=== PATIENT | female | born 1945 | race Caucasian/White ===

== ENCOUNTER 2019-01-10 08:18 | Inpatient (IN) ==
[2019-01-10] MEDS ORDERED: SOLU-MEDROL IV ONE (08:42)
[2019-01-10] MEDS ORDERED: ROCEPHIN 1 GM in NS 50 ML IV ONE (08:42)
--- NOTE | 2019-01-10 09:05 | Diag Imaging Result Doc PS360 ---
EXAM: CHEST-PORTABLE HISTORY: shortness of breath TECHNIQUE: Chest single view COMPARISON: None. FINDINGS: The lungs are hyperexpanded. The pulmonary vessels are small. No cardiomegaly. No consolidation. No pleural effusions identified. There has been surgery to the lower neck. IMPRESSION: Severe emphysema Electronically signed by Chris Mello 01/10/2019 9:02 AM
[2019-01-10 09:11] LABS: ALLEN TEST YES; BE 2.8 mmoll (-3.0-3.0); BLOOD TYPE ARTERIAL; METHB 0.9 % (0.0-1.5); O2(CT) 15.1 mL/dL (15.0-23.0); O2HB 92.4 % (95.0-99.0); PCO2(98.6) 34 mmHg (35-45); PO2(98.6) 65 mmHg (60-100); SAMPLE BLOOD; SAO2 95.3 % (95.0-100.0); THB 11.6 g/dL (11.5-17.4); pH(98.6) 7.49 (7.35-7.45)
[2019-01-10 09:12] LABS: MODALITY CANNULA
[2019-01-10] MEDS ORDERED: DUONEB (A & A) INH ONE (09:22)
[2019-01-10 09:35] LABS: BASO# 0.02 X1000 (0.0-0.2); BASO% 0.1 % (0.0-0.8); EOS# 0.01 X1000 (0.0-0.7); EOS% 0.1 % (0.0-10.0); HEMATOCRIT 35.1 % (37.0-47.0); HEMOGLOBIN 11.7 g/dL (12.0-16.0); IMM GRAN# 0.04 X1000 (0.0-0.04); IMM GRAN% 0.3 % (0.0-0.5); LYMPH# 1.19 X1000 (1.2-3.4); LYMPH% 7.9 % (20.5-51.1); MCH 31.4 PG (27-31); MCHC 33.3 g/dL (33-37); MCV 94.1 FL (81-99); MPV 9.6 FL (7.4-10.4); NEUT# 12.51 X1000 (1.4-6.5); NEUT% 83.6 % (42.2-75.2); PLT 396 X1000 (130-400); RBC 3.73 XMIL (4.2-5.4); RDW 13.3 % (11.5-14.5); WBC 14.97 X1000 (4.8-10.8)
--- NOTE | 2019-01-10 10:05 | EKG Report ---
Test Performed on : 01/10/2019 08:27:11 AM Test Reason : SOB Blood Pressure : / mmHG Vent. Rate : 081 BPM Atrial Rate : 081 BPM P-R Int : 144 ms QRS Dur : 158 ms QT Int : 408 ms P-R-T Axes : 087 081 088 degrees QTc Int : 473 ms Normal sinus rhythm. Nonspecific intraventricular block Abnormal ECG No previous ECGs available Unconfirmed Result
[2019-01-10 10:16] LABS: AGAP 17; ALB/GLOB RATIO 1.6; ALBUMIN 3.6 g/dL (3.5-5.0); ALKALINE PHOSPHATASE 114 U/L (32-104); BUN 11 mg/dL (8-22); CALCIUM 8.4 mg/dL (8.8-10.2); CHLORIDE 98 mmol/L (98-107); COSMO 275; CREATININE 0.4 mg/dL (0.5-0.9); ESTIMATED GFR > 60; GLUCOSE 131 mg/dL (70-104); GOT 26 U/L (10-30); GPT 26 U/L (10-36); POTASSIUM 3.9 mmol/L (3.5-5.1); SODIUM 137 mmol/L (136-145); TCO2 22 mmol/L (25-35); TOTAL BILIRUBIN 0.37 mg/dL (0.20-1.00); TOTAL PROTEIN 5.9 g/dL (6.3-8.3)
[2019-01-10] MEDS ORDERED: NS 1,000 ML IV ONE (10:28)
[2019-01-10] MEDS ORDERED: NS 1,000 ML ONE (10:32)
--- NOTE | 2019-01-10 10:39 | PROVIDER DOCUMENTATION ---
HPI-Respiratory General - General Chief Complaint: Shortness of Breath Stated Complaint: SOB Time Seen by Provider: 01/10/19 08:32 Allergies/Adverse Reactions: Patient Allergies Allergy/AdvReac Type Severity Reaction Status Date / Time Penicillins Allergy NAUSEA/VOMI Verified 01/04/19 18:06 TING Home Medications: Home Medication List Medication Instructions Recorded Confirmed Last Taken Type Levothyroxine [Synthroid] 75 microgm PO DAILY 01/04/19 01/04/19 Unknown History Oxycodone E.r. [Oxycontin] 10 mg PO Q12HR 01/04/19 01/04/19 Unknown History Oxycodone HCl/Acetaminophen 1 ea PO Q6H 01/04/19 01/04/19 Unknown History [Percocet 10-325 mg Tablet] Rivaroxaban [Xarelto] 25 mg PO DAILY 01/04/19 01/04/19 Unknown History - History of Present Illness-Resp Nature of Presenting Problem: patient was smoker with history of copd complained of worsening shortness of breath, cough without fever, patient denied using oxygen at home, patient has just recently moved to the area Quality of Pain: reports: tightness Severity in ED: reports: moderate Onset/Duration: reports: gradual Timing: reports: still present Exposure: reports: smoke exposure Cough Quality/Degree: reports: productive cough Episode Frequency: chronic episodes Current Respiratory Medication Therapy: Initiated albuterol/atrovent inhale Modifying Factors: improves with: exertion, coughing, oxygen Associated Symptoms: reports: chest pain/soreness, cough Similar Symptoms Previously?: Yes Recently seen or treated by another doctor?: No Past History - Adult - PAST MEDICAL HISTORY-ADULT Review of Records: reports: Nursing Assessment Review Physical Exam-General - PHYSICAL EXAM-ADULT Initial Vital Signs Reviewed: Yes - CONSTITUTIONAL General Appearance: alert, mild distress - EYES Eyes: PERRL/EOMI, pink conjunctivae - HEAD, EARS, NOSE, MOUTH & THROAT HENMT: normocephalic/atraumatic, moist mucous membranes - NECK Neck: non-tender, full range of motion, supple - RESPIRATORY Respiratory: chest non-tender, respiratory distress, other (distant breath sounds, not good air movement) - CARDIOVASCULAR Cardiovascular: normal peripheral pulses, regular rate, rhythm, no edema - GASTROINTESTINAL (ABDOMEN) Abdominal Exam: normal bowel sounds, non tender, soft - MUSCULOSKELETAL Back Exam: normal inspection, no CVA tenderness, no vertebral tenderness Extremity: normal range of motion, non-tender - SKIN Integumentary: normal color, normal turgor - NEUROLOGIC 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, grossly normal, no motor/sensory deficits - PSYCHIATRIC Psych/Mental Status: normal mood/affect Progress - PLAN OF CARE/RESULTS Progress/Plan/Lab Results: Vital Signs - 8 hr 01/10/19 08:22 01/10/19 09:52 Temperature 98.0 F Pulse Rate 86 66 Respiratory Rate 22 16 Blood Pressure 107/68 O2 Sat by Pulse Oximetry 84 L 92 L Laboratory Results - last 24 hr 01/10/19 01/10/19 01/10/19 09:00 09:00 09:00 WBC RBC Hgb Hct MCV MCH MCHC RDW Std Deviation Plt Count MPV Immature Gran % (Auto) Neut % (Auto) Lymph % (Auto) [place] % (Auto) Eos % (Auto) Baso % (Auto) Immature Gran # (Auto) Neut # (Auto) Lymph # (Auto) [place] # (Auto) Eos # (Auto) Baso # (Auto) Specimen Type Sample Site pH pCO2 pO2 HCO3 Base Excess Oxyhemoglobin ABG O2 Sat (Calculated) ABG O2 Saturation ABG Carboxyhemoglobin ABG Methemoglobin Terrell Test A-a O2 Difference Total Hemoglobin Lactate Liter Flow Blood Gas Modality FiO2 % Sodium 137 Potassium 3.9 Chloride 98 Carbon Dioxide 22 L Anion Gap 17 BUN 11 Creatinine 0.4 L Estimated GFR/1.73 m2 > 60 BUN/Creatinine Ratio 28 Glucose 131 H Calculated Osmolality 275 Calcium 8.4 L Total Bilirubin 0.37 AST 26 ALT 26 Alkaline Phosphatase 114 H Fwv-Z-Ktatktsnwlv Pept 3879 H Total Protein 5.9 L Albumin 3.6 Globulin 2.3 Albumin/Globulin Ratio 1.6 Plasma Lactate 1.3 01/10/19 01/10/19 01/10/19 09:00 09:02 10:35 WBC 14.97 H RBC 3.73 L Hgb 11.7 L Hct 35.1 L MCV 94.1 MCH 31.4 H MCHC 33.3 RDW Std Deviation 13.3 Plt Count 396 MPV 9.6 Immature Gran % (Auto) 0.3 Neut % (Auto) 83.6 H Lymph % (Auto) 7.9 L [place] % (Auto) 8.0 Eos % (Auto) 0.1 Baso % (Auto) 0.1 Immature Gran # (Auto) 0.04 Neut # (Auto) 12.51 H Lymph # (Auto) 1.19 L [place] # (Auto) 1.20 H Eos # (Auto) 0.01 Baso # (Auto) 0.02 Specimen Type ARTERIAL Sample Site R RADIAL pH 7.49 H pCO2 34 L pO2 65 HCO3 27.0 H Base Excess 2.8 Oxyhemoglobin 92.4 L ABG O2 Sat (Calculated) 15.1 ABG O2 Saturation 95.3 ABG Carboxyhemoglobin 2.00 ABG Methemoglobin 0.9 Terrell Test YES A-a O2 Difference 121.0 Total Hemoglobin 11.6 Lactate 0.80 Liter Flow 3.0 Blood Gas Modality CANNULA FiO2 % 32.0 Sodium Potassium Chloride Carbon Dioxide Anion Gap BUN Creatinine Estimated GFR/1.73 m2 BUN/Creatinine Ratio Glucose Calculated Osmolality Calcium Total Bilirubin AST ALT Alkaline Phosphatase Kmb-C-Hvdnafkifjj Pept Total Protein Albumin Globulin Albumin/Globulin Ratio Plasma Lactate 0.9 Orders Category Date Time Status Saline Loc NOW Care 01/10/19 08:42 Active CHEST-PORTABLE [RAD] Stat Exams 01/10/19 08:43 Completed ABG [RESP] Routine Lab 01/10/19 09:02 Completed BLOOD CULTURE [BLDCUL] Stat Lab 01/10/19 09:00 Results CBC WITH DIFF [HEME] Stat Lab 01/10/19 09:00 Completed COMPREHENSIVE METABOLIC PANEL [CHEM] Stat Lab 01/10/19 09:00 Completed LACTATE, PLASMA [CHEM] Stat Lab 01/10/19 09:00 Completed LACTATE, PLASMA [CHEM] Stat Lab 01/10/19 10:35 Completed PRO B-NATRIURETIC PEPTIDE Stat Lab 01/10/19 09:00 Completed 0.9% Sodium Chloride Inj [Ns] 1,000 ml Med 01/10/19 10:32 Discontinued .ROUTE As directed 0.9% Sodium Chloride Inj [Ns] 1,000 ml Med 01/10/19 10:28 Discontinued IV 999 mls/hr Albuterol 2.5MG/Ipratrop 0.5MG [Duoneb (A & A)] Med 01/10/19 09:22 Discontinued 3 ml INH NOW ONE CefTRIAXONE [Rocephin] 1 gm Med 01/10/19 08:42 Discontinued 0.9% Sodium Chloride Inj [Ns] 50 ml IV NOW Methylprednisolone Sod Succ [Solu-Medrol] Med 01/10/19 08:42 Discontinued 125 mg IV NOW ONE Aerosol Treatments Routine Oth 01/10/19 09:22 Completed Aerosol Treatments Stat Oth 01/10/19 09:22 Completed Pulse Oximetry Stat Oth 01/10/19 08:42 Completed EKG [EKG] Stat Ther 01/10/19 10:00 Draft Result Diagrams: 01/10/19 09:00 01/10/19 09:00 - EKG 1 Time of EKG reading by physician:: 08:27 EKG Read and Signed by:: Alma Kimbrough EKG Interpretation (*Must complete 3 of following elements*): Abnormal Rate: 81 Rhythm: normal sinus rhythm [place]: normal [place] Interval: normal Comments: nonspecific intraventricular block Departure - Departure Referrals and Follow-Ups: None,PCP [Primary Care Provider] -
[2019-01-10] MEDS ORDERED: DUONEB (A & A) INH PRN (11:41)
[2019-01-10] MEDS ORDERED: ROCEPHIN 1 GM in NS 50 ML IV SCH (11:45)
[2019-01-10] MEDS: SOLU-MEDROL IV SCH (11:45)
[2019-01-10] MEDS ORDERED: NICODERM PATCH TD ONE (11:47)
--- NOTE | 2019-01-10 12:16 | Diag Imaging Result Doc PS360 ---
ABDOMEN FLAT/UPRIGHT - 01/10/2019 INDICATION: constipation COMPARISON: None FINDINGS: There is severe diffuse constipation with mild rectal stool impaction. No small bowel obstruction or free air. No abnormal calcifications. IMPRESSION: Severe constipation with rectal stool impaction. Electronically signed by Fadi Linda 01/10/2019 12:14 PM
[2019-01-10] MEDS ORDERED: FLEET MINERAL OIL ENEMA PR ONE (12:18)
[2019-01-10] MEDS ORDERED: ROBITUSSIN-AC PO PRN (13:27)
--- NOTE | 2019-01-10 13:30 | Diag Imaging Result Doc PS360 ---
MRI LUMBAR SPINE W/O CONTRAST - 01/10/2019 INDICATION: Lumbar fx, urinary incontinence, neuro deficits COMPARISON: CT from 01/04/2019 FINDINGS: Alignment is anatomic. There is bone marrow edema at the compression fracture with superior endplate fracture at L2. There is about 30% loss of height. No bony retropulsion. The gallbladder is severely dilated. There is also severe dilation of the common bile duct. The common bile duct measures up to 12.2 mm. No obvious stone or mass here. There our moderate disc bulges at L2-3 and L3-L4. There is severe disc narrowing at L5-S1 with degeneration. No significant central canal stenosis. No neural foraminal stenosis. IMPRESSION: 1. Recent compression fracture of L2 with bone marrow edema. No complication. 2. Severely distended gallbladder and extrahepatic biliary system. Concerning for distal common bile duct obstruction. The reason is unclear. Recommend a right upper quadrant ultrasound for further evaluation. Electronically signed by Fadi Linda 01/10/2019 1:28 PM
--- NOTE | 2019-01-10 14:28 | ECHO REPORT ---
ORDER DATE: 01/10/2019 INTERPRETING PHYSICIAN: Dr. Levon Dumas ECHOCARDIOGRAPHIC MEASUREMENTS: 1. Interventricular septum 1.2. 2. Left ventricular posterior wall 1.1. 3. Diastolic diameter 4.4. 4. Left atrium 4.1. 5. Aorta 3.3. SUMMARY OF THE 2-DIMENSIONAL IMAGIN. Technically suboptimal study. 2. Poor acoustic window. 3. Aortic valve leaflets are trileaflet. 4. Pulmonic valve not well visualized. 5. Mitral valve was normal. 6. Tricuspid valve was normal. 7. Normal left ventricular cavity size. Estimated ejection fraction of 55%. 8. Endocardium not well visualized in all views. 9. There is mitral annular calcification. 10. There is mild mitral regurgitation. 11. Peak velocity across the aortic valve less than 2 m/sec. 12. By Doppler studies, there is no aortic stenosis or regurgitation. 13. Mild tricuspid regurgitation. 14. Peak velocity across the tricuspid valve was less than 2.5 m/sec. 15. There is no pericardial effusion. cc: MD Jelly Novak MD
[2019-01-10] MEDS: HEPARIN SUBQ SCH ×2 (14:55→20:53)
[2019-01-10] MEDS: ZITHROMAX PO SCH (14:55)
[2019-01-10] MEDS: TESSALON PO SCH ×2 (14:55→20:53)
[2019-01-10] MEDS: NS 1,000 ML IV SCH (14:55)
[2019-01-10] MEDS: NICODERM PATCH TD SCH (14:55)
[2019-01-10] MEDS: PERCOCET-5 PO PRN ×2 (15:07→21:30)
[2019-01-10] MEDS: DUONEB (A & A) INH SCH ×2 (15:39→19:48)
--- NOTE | 2019-01-10 16:09 | HISTORY AND PHYSICAL ---
CHIEF COMPLAINT: Shortness of breath, cough with thoracic back pain. HISTORY OF PRESENT ILLNESS: This is a 73-year-old female with a history of COPD, chronic tobacco use, hypertension, hypothyroid, atrial fibrillation, who fell on January 04 and was found to have a compression fracture at the upper endplate of L2 with a less than 2 mm retropulsion in the upper endplate fragment with no subluxation. She was evaluated in the emergency room on January 06 after this fall, discharged home to follow up with the [facility]. She was actually evaluated earlier in the week, given a TLSO brace and has an MRI scheduled for in the morning due to urinary incontinence. She presents today complaining of thoracic pain that wraps around to both mid axillary areas, shortness of breath with a productive cough. She presented with a room air saturation of 84%. Sats increased to 92 to 94 percent on 2 L nasal cannula. In talking with the patient and her daughter, since the fall the patient has had some urinary incontinence. She states she does not feel the urge to void. She does knows that she goes after she finds her clothes wet. She has also states that she has had some decreased sensation in the form of tingling to her bilateral lower extremities. The daughter states that the patient is not lifting her legs as high as normal and she is tripping and a few times it seemed that she could not control which way her feet were pointing. PAST MEDICAL HISTORY: 1. Chronic obstructive pulmonary disease. 2. Atrial fibrillation on chronic anticoagulation. 3. Congestive heart failure. 4. Hypertension. 5. Hypothyroidism. 6. Fibromyalgia. 7. Chronic back pain on chronic opiates. 8. Chronic constipation 9. Recent lumbar compression fracture 10. Tobacco dependence PAST SURGICAL HISTORY: Hysterectomy and C4 replacement. SOCIAL HISTORY: She smokes about a half a pack to a pack a day. She denies alcohol or illicit drug use. She lives with her . They recently moved here from [place] to be closer to their children. REVIEW OF SYSTEMS: Discussed with the patient with pertinent positives stated in the HPI. She denied any syncope or dizziness, any chest pain or palpitations, any nausea, vomiting, diarrhea, any black or bloody vomitus or stools, any hematuria, dysuria, frequency, urgency. PHYSICAL EXAMINATION: GENERAL: This is a 73-year-old female who is lying on the stretcher in the emergency room in mild distress. VITAL SIGNS: Blood pressure is 105/50, with a heart rate of 64, respirations are 20 to 24, temperature is 98 degrees with O2 saturations 92 to 94 percent on 3 L nasal cannula. HEENT: Head is normocephalic, atraumatic. Mucous membranes are moist. NECK: Supple. Trachea midline. CARDIOVASCULAR: Regular rate and rhythm. S1 and S2 appreciated. EXTREMITIES: She has no lower extremity edema. Peripheral pulses are palpable x4 extremities. Calves are nontender bilateral. PULMONARY: Breath sounds are diminished throughout. She does have prolonged expiration. She does have rhonchi that do not completely clear to cough with a little expiratory wheezing on the right greater than left. Chest wall is nontender to palpation. GASTROINTESTINAL: Abdomen is soft, nontender, nondistended. Bowel sounds in all 4 quadrants. GENITOURINARY: She has no CVA or suprapubic tenderness. NEUROLOGIC: She is alert oriented x3. SKIN: Warm and dry. LABS: WBC is 14.9 with hemoglobin 11.7, hematocrit 35.1, and platelets of 396,000. Sodium 137, potassium 3.9, BUN 11, creatinine 0.4 with a glucose of 131. Her EKG reveals sinus rhythm at a rate of 81. Abdominal x-ray revealed severe constipation with rectal stool impaction. ASSESSMENT AND PLAN: 1. Chronic obstructive pulmonary disease with acute exacerbation. DuoNebs q.4 hours with q.2 hours p.r.n. steroids to taper. 2. Acute hypoxic respiratory failure. continue with supplemental oxygen. 3. Productive cough. Incentive spirometer every 4 hours per respiratory therapy. [place] Claros AC 10 mL q.4 hours p.r.n. cough. sputum specimen. 4. Hypertension identify her home medications and continue as appropriate. 5. History of atrial fibrillation on chronic anticoagulation. telemetry. hold Xarelto at present as we are obtaining an MRI due to neurologic deficits and anticoagulation will be decided upon once results are obtained. 6. Hypothyroidism. We will check a TSH and continue her home medications and dose appropriately. 7. Recent compression fracture to L2. Obtain MRI of the lumbar spine without contrast as the patient has had urinary incontinence as well as decreased sensation and tingling to bilateral lower extremities. 8. Chronic back pain with chronic opiate use. The patient is on oxycodone 10 mg chronically. We will verify her dosing, but as we are going to give Robitussin AC for her cough, we will decrease pain medications to Percocet 5 q.4 hours p.r.n. and this can be alternated with her cough syrup. The patient and daughter have been explained and they are aware and agreeable. 9. Chronic constipation. We obtained an abdominal x-ray which revealed severe constipation with rectal stool impaction. Give oral enema followed by Fleets and monitor. We will start a bowel regimen of MiraLAX b.i.d. starting tonight. 10. History of congestive heart failure. obtain an echocardiogram. 11. Tobacco use and abuse. I did discuss with the patient regarding smoking cessation discussing ways to stop. She will be given written materials. We will start a nicotine patch daily. Further treatments pending hospital course. Plan was discussed with Dr. Sawyer. Dictated by SUMANTH Sanabria for Jelly Sawyer MD cc: SUMANTH Sanabria MD I performed a face to face encounter on the patient. I reviewed all labs and imaging on the patient. I agree with the H&P as dictated. is a 73 year old female with a history of COPD, chronic constipation, tobacco abuse and a recent lumbar compression fracture who presented to the ER with a chief complaint of shortness of breath and abdominal pain. The patient was noted to be in a COPD exacerbation with severe constipation. On exam, the patient is dyspneic. She is alert and oriented x 4. Her breath sounds are diminished bilaterally. She has hypoactive bowel sounds. No peripheral edema was noted. The patient will be admitted and started on antibiotics, bronchodilator therapy, IV steroids and supplemental oxygen. Will start the patient on a bowel regimen and ask the nursing staff to disimpact the patient. CLAUDETTED
--- NOTE | 2019-01-10 16:45 | Diag Imaging Result Doc PS360 ---
US ABDOMEN-COMPLETE - 01/10/2019 INDICATION: cholelithiasis COMPARISON: MRI from earlier today FINDINGS: The gallbladder is severely distended. This measures about 12 x 4.6 cm. There our numerous small granular shadowing stones in the gallbladder. Common bile duct measures about 7.6 mm. There are probably some small stones in the right kidney measuring up to 4.5 mm. No hydronephrosis. The left kidney is normal. The liver, pancreas, and spleen are normal. Spleen size is 7.5 cm. Aorta, IVC, and main portal vein are patent. IMPRESSION: 1. Severely distended gallbladder. Several small stones in the gallbladder. Concerning for cholecystitis. 2. Small nonobstructing right renal stones. Electronically signed by Fadi Linda 01/10/2019 4:43 PM
[2019-01-10] MEDS: MIRALAX PO SCH (20:53)
[2019-01-10] MEDS: SENOKOT PO SCH (20:53)
--- NOTE | 2019-01-10 22:35 | CONSULTATION ---
DATE OF CONSULTATION: 01/10/2019 REQUESTING PROVIDER: Dr. Jelly Sawyer. REASON FOR CONSULTATION: Acute hypoxemic respiratory failure, severe emphysema. HISTORY OF PRESENT ILLNESS: This is a 73-year-old female with a medical history of COPD, ongoing tobacco abuse, atrial fibrillation, congestive heart failure, hypertension, hypothyroidism, fibromyalgia, and chronic back pain. She presented to the ER early this morning with severe cough spell and worsening shortness of breath. Chest x-ray in the ER showed severe emphysema. Abdominal x-ray showed severe constipation with rectal stool impaction. Her initial oxygen saturation at room air was 84%. Lab work showed leukocytosis, mild anemia and elevated proBNP. The patient reported she just moved here from [place] on January 01 via driving an RV. She reports some bilateral lower extremity edema with the right side slightly worse after that long drive, and later her pedal edema resolved, but she developed some discomfort on her lower extremities. She had a recent fall on January 04 with a L2 compression fracture. She also developed some dry cough since last week, which is progressively worsening especially in last 3 days. She states the cough spell took her breath away this morning and later she developed some pain on the bilateral low back with coughing or deep breathing. She reports she gained some weight recently. She has some wheezing recently at nighttime after she gets up to the bathroom. She is on some maintenance inhaler and a rescue inhaler at home. She also lost her appetite in the last couple days due to sickness. She has no chest pain, palpitation, fever, nausea or vomiting, or urination discomfort. PAST MEDICAL HISTORY: 1. COPD. 2. Ongoing tobacco abuse. 3. Atrial fibrillation on chronic anticoagulation. 4. Congestive heart failure. 5. Hyperlipidemia. 6. Hypothyroidism. 7. Fibromyalgia. 8. Chronic back pain, on chronic opiates. PAST SURGICAL HISTORY: 1. Hysterectomy and C4 replacement. SOCIAL HISTORY: The patient just moved from [place] on 01/01/2019. She recently smoked about 5 cigarettes per day, but stopped 3 days ago. She used to smoke 1 pack per day since she was 22 years old. She has no alcohol or illicit drug use. She currently lives at home with her . FAMILY HISTORY: Unknown. ALLERGIES: Penicillins. REVIEW OF SYSTEMS: A 10-point review of systems was conducted and the pertinent is listed within the HPI, otherwise noncontributory. PHYSICAL EXAMINATION: Vital Signs: Temperature 98.0, blood pressure 105/50, pulse 64, respiratory rate 24, oxygen saturation 92% on nasal cannula at 3. General: Chronically ill- appearing, lying in bed with no acute distress noted. HEENT: Atraumatic, normocephalic. Trachea midline. Mucosa pink and dry. Respiratory: Even and unlabored. Symmetrical excursion. Mild tachypnea. Auscultation reveals diminished breathing sounds bilaterally with prolonged expiratory phase. Cardiovascular: Regular rate and rhythm. Gastrointestinal: Soft, nondistended. Bilateral lower quadrant tenderness. Normoactive bowel sounds in all 4 quadrants. Extremities: No pedal edema. No cyanosis. No clubbing. Dorsalis pedis 1+ bilaterally. Neurologic: Alert and oriented x3. Speech fluent. Follows commands. LABORATORY DATA: White blood cell 14.97, hemoglobin 11.7, hematocrit 35.1, platelets 396. Sodium 137, potassium 3.9, chloride 98, carbon dioxide 22, BUN 11, creatinine 0.4, glucose 131. ProBNP 3879. ABG: pH of 7.49, pCO2 of 34, PO2 of 65, HC03 of 27.0, base excess of 2.8, oxyhemoglobin of 92.4. IMAGING DATA: See above. ASSESSMENT: This is a 73-year-old female with a medical history of COPD, ongoing tobacco abuse, atrial fibrillation, congestive heart failure, hypertension, hypothyroidism, fibromyalgia, and chronic back pain. She has been admitted to the medical floor since this morning with acute hypoxic respiratory failure, chronic obstructive pulmonary disease exacerbation, recent fall with L2 compression fracture, and constipation. 1. Acute hypoxic respiratory failure. 2. Chronic obstructive pulmonary disease exacerbation. 3. Ongoing tobacco abuse. 4. Severe constipation with rectal stool impaction. PLAN: 1. Continue supplemental oxygen. 2. Continue antibiotics, steroid and bronchodilators. 3. Follow up with CBC, BMP, sputum culture, blood culture, and liver function panel. 4. Daily smoking cessation education. 5. Continue GI and DVT prophylaxis. 6. Further recommendations pending hospital course. Thank you for the courtesy of this consult. Dictated by SUMANTH Wilburn for Cuate Lombardi MD cc: SUMANTH Wilburn MD [facility]
--- NOTE | 2019-01-10 23:39 | GENERAL SURGERY CONSULTATION ---
DATE: 01/10/2019 REASON FOR CONSULTATION: Gallstones. CHIEF COMPLAINT: Shortness of breath. HISTORY OF PRESENT ILLNESS: This is a 73-year-old female, chronically ill with COPD, chronic tobacco use, atrial fibrillation on Eliquis, recent lumbar compression fracture related to a fall, hypertension, hypothyroidism. She presents with shortness of breath and some bilateral chest discomfort. She was admitted to the Hospitalist service and workup showed severe emphysematous changes to lungs, L2 compression fracture. Abdominal ultrasound showed dilated gallbladder with gallstones, common bile duct measured 7.6 mm, right ureteral stones. Echocardiogram showed ejection fraction of 55%. Prior to this, she was in her usual state of health. She does have chronic productive cough that has worsened of late. MEDICAL HISTORY: COPD, atrial fibrillation on Eliquis, congestive heart failure, hypertension, hypothyroidism, fibromyalgia, degenerative spine disease. SURGICAL HISTORY: She has had C4 replaced, hysterectomy. No other abdominal surgery. SOCIAL HISTORY: She smokes a half pack a day, but has smoked for a long period of time. No alcohol. She lives with her son and children, recently moved from [place]. REVIEW OF SYSTEMS: A 10-point review of systems is negative other than what is mentioned in HPI. FAMILY HISTORY: Reviewed and noncontributory. PHYSICAL EXAMINATION: She is afebrile, pulse 65, blood pressure 94/45, oxygen saturation 93%. She is on 4 L. General: She is chronically ill-appearing, but in no acute distress. HEENT: No scleral icterus. No cervical masses. Cardiovascular: Normal rate, regular rhythm. Pulmonary: She does have some increased work of breathing, prolonged expiratory phase. She is on nasal cannula. Abdomen: Soft, nontender, nondistended. Integument: Warm, dry. Psychiatric: Appropriate affect. Neurologic: No gross deficits. Lymphatic: No cervical, axillary, or inguinal adenopathy. LABORATORY: White count is 14, hematocrit is 35, platelets 396,000. ABG shows pH of 7.49, CO2 of 65. Creatinine 0.4. Bilirubin is normal. AST and ALT are normal. Alkaline phosphatase mildly elevated at 114. IMAGING: As noted in her HPI. ASSESSMENT AND PLAN: A 73-year-old female admitted with most likely chronic obstructive pulmonary disease exacerbation. She has multiple medical issues. She was found to have gallstones and a distended gallbladder. Her LFTs are normal with the exception of her alkaline phosphatase in the recent setting of a lumbar spine fracture. This is not completely unexpected. Her bile duct is normal caliber on ultrasound. Symptoms are possibly related to symptomatic cholelithiasis, although I do not have clinical suspicion for cholecystitis at this juncture based off her exam and her history. I will continue to follow along. She would be very high risk for perioperative complication given her chronic lung disease. I would recommend holding her oral anticoagulation while we observe her abdominal exam and treatment of her respiratory status. Continue low-fat, liquid diet in the meantime, and we will continue to follow along with you. cc: Chema Gan MD
[2019-01-11] MEDS: SOLU-MEDROL IV SCH ×6 (00:44→23:34)
[2019-01-11] MEDS: NS 1,000 ML IV SCH ×3 (00:45→14:44)
[2019-01-11] MEDS: DUONEB (A & A) INH SCH ×7 (02:03→23:37)
[2019-01-11] MEDS: HEPARIN SUBQ SCH ×3 (05:36→20:07)
[2019-01-11] MEDS: PERCOCET-5 PO PRN ×5 (05:37→23:34)
[2019-01-11] MEDS: PRILOSEC PO SCH ×2 (05:37→06:05)
[2019-01-11 08:02] LABS: HEMATOCRIT 31.8 % (37.0-47.0); HEMOGLOBIN 10.6 g/dL (12.0-16.0); MCH 31.5 PG (27-31); MCHC 33.3 g/dL (33-37); MCV 94.6 FL (81-99); MPV 9.3 FL (7.4-10.4); RBC 3.36 XMIL (4.2-5.4); RDW 13.2 % (11.5-14.5); WBC 10.9 X1000 (4.8-10.8)
[2019-01-11 08:28] LABS: AGAP 15; BUN 14 mg/dL (8-22); CALCIUM 8.5 mg/dL (8.8-10.2); CHLORIDE 106 mmol/L (98-107); COSMO 284; CREATININE 0.5 mg/dL (0.5-0.9); ESTIMATED GFR > 60; GLUCOSE 112 mg/dL (70-104); POTASSIUM 3.9 mmol/L (3.5-5.1); SODIUM 142 mmol/L (136-145); TCO2 21 mmol/L (25-35)
[2019-01-11 08:45] LABS: ALB/GLOB RATIO 1.3; ALBUMIN 3.1 g/dL (3.5-5.0); DIRECT BILIRUBIN 0.1 mg/dL (0.00-0.20); TOTAL BILIRUBIN 0.28 mg/dL (0.20-1.00); TOTAL PROTEIN 5.5 g/dL (6.3-8.3)
--- NOTE | 2019-01-11 09:44 | Diag Imaging Result Doc PS360 ---
ABDOMEN FLAT/UPRIGHT - 01/11/2019 INDICATION: constipation COMPARISON: 01/10/2019 FINDINGS: There has been some reduction in the constipation particularly at the descending colon. There is still significant remaining constipation throughout the colon. No small bowel obstruction or free air. IMPRESSION: Some improvement in the constipation. Electronically signed by Fadi Linda 01/11/2019 9:41 AM
--- NOTE | 2019-01-11 10:23 | PROVIDER PROGRESS NOTE ---
Progress Note Pulmonary additional note: If a surgical procedure is needed, we can clear with moderate pulmonary risk management perioperatively. If needed, I think the patient will likely do Ok with surgical procedure.
[2019-01-11] MEDS: MIRALAX PO SCH ×2 (10:30→20:07)
[2019-01-11] MEDS: ROCEPHIN 1 GM in NS 50 ML IV SCH (10:31)
[2019-01-11] MEDS: TESSALON PO SCH ×3 (10:31→18:29)
[2019-01-11] MEDS: ZITHROMAX PO SCH (10:31)
[2019-01-11] MEDS: NICODERM PATCH TD SCH (10:31)
--- NOTE | 2019-01-11 14:26 | GENERAL SURGERY PROGRESS NOTE ---
DATE: 01/11/2019 SUBJECTIVE: She denies any abdominal pain. No nausea, vomiting. She says she is breathing more comfortably. No fevers. No tachycardia. OBJECTIVE: Vital Signs: Blood pressure 125/53, oxygen saturation 96% on 2 L. General: She is alert. Less work of breathing noted this morning. Abdomen: Her abdomen is soft, nontender, nondistended. Integument: Warm and dry without jaundice. LABS: White count 10, down from 14, hematocrit 31m,, creatinine 0.5. Her LFTs remain normal, now with a normal alkaline phosphatase. ASSESSMENT AND PLAN: This is a 73-year-old female, who presented with apparent pneumonia versus chronic obstructive pulmonary disease exacerbation, found to have gallstones with a gallbladder distention. Liver function tests are normal. Her abdominal exam is benign. Given her comorbid conditions, cholecystectomy would be a very high risk. We will continue to monitor as I do not suspect that she has active symptoms associated with this. cc: Chema Gan MD
--- NOTE | 2019-01-11 16:02 | PROGRESS NOTE ---
DATE: 01/11/2019 SUBJECTIVE: The patient is resting comfortably in bed. She states that her back pain is a little bit better once she receives the pain medication. She reports that she had a bowel movement overnight and her stomach feels a little bit better. OBJECTIVE: Vital Signs: Temperature 98.5 degrees, blood pressure 125/53, heart rate 82, respirations 18, O2 saturation is 96% on 4 L nasal cannula. General: This is a chronically ill- appearing elderly female lying in bed, in no acute distress. Heart: S1, S2. Normal. Lungs: Diminished breath sounds bilaterally. No wheezing. No rales. Abdomen: Positive bowel sounds. Soft, nontender, nondistended. Extremities: No edema, no cyanosis. Neurologic: The patient is alert and oriented x4. LABS: White blood cell count 10, hemoglobin 10, hematocrit 31, platelets 402,000. Sodium 142, potassium 3.9, chloride 106, CO2 21, BUN 14, creatinine 0.5, glucose 112, calcium 8.5, AST 18, ALT 20, alkaline phosphatase 97, albumin 3.1. ASSESSMENT AND PLAN: 1. Acute chronic obstructive pulmonary disease exacerbation. Continue with IV steroids, bronchodilator therapy, antibiotics and supplemental oxygen. 2. L2 compression fracture. Continue with the TLSO brace. The patient will likely require rehab. The patient is followed [facility] [place]. 3. Distended gallbladder. Continue to monitor closely. General Surgery is following. 4. Constipation. Continue with scheduled laxative therapy. 5. Tobacco dependence. The patient has been counseled about smoking cessation. 6. Deep vein thrombosis prophylaxis. Continue on heparin. 7. We will consult Physical Therapy. cc: Jelly Sawyer MD
[2019-01-11] MEDS: SENOKOT PO SCH (20:08)
[2019-01-12] MEDS: DUONEB (A & A) INH SCH ×5 (03:15→19:54)
[2019-01-12] MEDS: NS 1,000 ML IV SCH (04:11)
[2019-01-12] MEDS: HEPARIN SUBQ SCH ×3 (04:12→20:31)
[2019-01-12] MEDS: PRILOSEC PO SCH (06:07)
[2019-01-12] MEDS: SOLU-MEDROL IV SCH ×3 (06:07→17:20)
[2019-01-12] MEDS: PERCOCET-5 PO PRN ×4 (07:18→20:30)
--- NOTE | 2019-01-12 07:28 | Diag Imaging Result Doc PS360 ---
CHEST-1 VIEW - 01/12/2019 INDICATION: pneumonia COMPARISON: 01/10/2019 FINDINGS: Stable COPD. There is new, significant interstitial pulmonary edema. Pulmonary vessels are distended. Heart size is normal. No pneumothorax or significant pleural effusion. IMPRESSION: Interstitial pulmonary edema. Advanced COPD. Electronically signed by Fadi Linda 01/12/2019 7:25 AM
[2019-01-12 08:00] LABS: BASO# 0.01 X1000 (0.0-0.2); BASO% 0.1 % (0.0-0.8); HEMATOCRIT 34.7 % (37.0-47.0); HEMOGLOBIN 11.5 g/dL (12.0-16.0); IMM GRAN# 0.04 X1000 (0.0-0.04); IMM GRAN% 0.4 % (0.0-0.5); LYMPH# 0.95 X1000 (1.2-3.4); LYMPH% 9.1 % (20.5-51.1); MCH 31.3 PG (27-31); MCHC 33.1 g/dL (33-37); MCV 94.6 FL (81-99); MONO# 0.33 X1000 (0.11-0.59); MONO% 3.1 % (1.7-9.3); MPV 9.5 FL (7.4-10.4); NEUT# 9.15 X1000 (1.4-6.5); NEUT% 87.3 % (42.2-75.2); PLT 477 X1000 (130-400); RBC 3.67 XMIL (4.2-5.4); RDW 13.7 % (11.5-14.5); WBC 10.48 X1000 (4.8-10.8)
[2019-01-12] MEDS ORDERED: LASIX IV ONE ×2 (08:17→09:35)
[2019-01-12 08:19] LABS: AGAP 11; BUN 15 mg/dL (8-22); CALCIUM 8.8 mg/dL (8.8-10.2); CHLORIDE 107 mmol/L (98-107); COSMO 285; CREATININE 0.4 mg/dL (0.5-0.9); ESTIMATED GFR > 60; GLUCOSE 142 mg/dL (70-104); POTASSIUM 3.8 mmol/L (3.5-5.1); SODIUM 141 mmol/L (136-145); TCO2 23 mmol/L (25-35)
[2019-01-12] MEDS: MIRALAX PO SCH ×2 (09:02→20:31)
[2019-01-12] MEDS: ZITHROMAX PO SCH (09:03)
[2019-01-12] MEDS: ROCEPHIN 1 GM in NS 50 ML IV SCH (09:03)
[2019-01-12] MEDS: NICODERM PATCH TD SCH (09:03)
[2019-01-12] MEDS: TESSALON PO SCH ×3 (09:03→16:27)
--- NOTE | 2019-01-12 10:57 | GENERAL SURGERY PROGRESS NOTE ---
DATE: 01/12/2019 SUBJECTIVE: This patient is doing well. No abdominal pain. She got very short of breath with moving to the bedside chair yesterday. OBJECTIVE: [*]blood pressure 133/66. Oxygen saturation is 94% on 4 L. General: She is alert. She does have some more increased work of breathing. She is on nasal cannula. Cardiovascular: Normal rate. Abdomen: Soft, nontender. Skin is warm and dry without jaundice. DIAGNOSTIC DATA: White count is 10, hematocrit is 34. No LFTs today, they were normal yesterday. ASSESSMENT AND PLAN: This is a 73-year-old female with chronic obstructive pulmonary disease exacerbation with apparent pulmonary edema as well, possible pneumonia. Gallbladder was distended with gallstones, but I do not suspect this is the source of her issues. We will continue to follow. Pulmonology is engaged. cc: Fela Camara MD
--- NOTE | 2019-01-12 18:09 | PROGRESS NOTE ---
DATE: 01/12/2019 SUBJECTIVE: The patient complains of coughing spells. OBJECTIVE: Vital Signs: Temperature 99 degrees, blood pressure 134/65, heart rate 75, respirations 20, O2 saturation 92% on 4 L nasal cannula. Intake 2.4 L. Output 1.4 L. General: This is a chronically ill-appearing elderly female lying in bed in no acute distress. Heart: S1, S2 normal. Tachycardic. Lungs: Diminished breath sounds with crackles at the bases. Abdomen: Positive bowel sounds. Soft, nontender, nondistended. Extremities: No edema. No cyanosis. Neurologic: The patient is alert and oriented x3. LABS: White blood cell count 10, hemoglobin 11, hematocrit 34, platelets 477,000. Sodium 141, potassium 3.8, chloride 107, CO2 23, BUN 15, creatinine 0.4 glucose 142. Chest x-ray shows interstitial pulmonary edema and advanced COPD. ASSESSMENT AND PLAN: 1. Acute chronic obstructive pulmonary disease exacerbation. Continue on IV steroids, bronchodilator therapy and supplemental oxygen. 2. Acute hypoxemic respiratory failure. Multifactorial. 3. Acute pulmonary edema. The patient was given diuretic therapy today. We will monitor her response. 4. L2 compression fracture. Continue with the TLSO brace. Physical therapy has been consulted. 5. Distended gallbladder. Continue to monitor closely. 6. Constipation. Continue with scheduled laxative therapy. 7. Tobacco dependence. The patient has been counseled about smoking cessation. 8. Deep vein thrombosis prophylaxis. Continue on heparin. 9. Physical therapy has been consulted. cc: Jelly Sawyer MD MTDD
[2019-01-12] MEDS: MUCOMYST 20% INH SCH (19:55)
[2019-01-12] MEDS: SENOKOT PO SCH (20:31)
[2019-01-13] MEDS: SOLU-MEDROL IV SCH ×5 (00:02→23:04)
[2019-01-13] MEDS: PERCOCET-5 PO PRN ×6 (00:02→23:08)
[2019-01-13] MEDS: DUONEB (A & A) INH SCH ×7 (00:06→23:06)
[2019-01-13] MEDS: HEPARIN SUBQ SCH ×3 (05:49→20:17)
[2019-01-13] MEDS: PRILOSEC PO SCH ×2 (05:50→06:02)
[2019-01-13 07:46] LABS: HEMATOCRIT 34.8 % (37.0-47.0); HEMOGLOBIN 11.9 g/dL (12.0-16.0); MCH 32.2 PG (27-31); MCHC 34.2 g/dL (33-37); MCV 94.3 FL (81-99); MPV 9.4 FL (7.4-10.4); RBC 3.69 XMIL (4.2-5.4); RDW 13.5 % (11.5-14.5); WBC 10.72 X1000 (4.8-10.8)
--- NOTE | 2019-01-13 07:54 | Diag Imaging Result Doc PS360 ---
CHEST-1 VIEW - 01/13/2019 INDICATION: dyspnea COMPARISON: 01/12/2019 FINDINGS: Stable hyperexpanded lungs compatible with COPD. There has been resolution of the pulmonary vascular congestion and interstitial pulmonary edema. Heart size is grossly normal. No significant pleural effusion. IMPRESSION: Resolution of the interstitial pulmonary edema and pulmonary vascular congestion. Electronically signed by Fadi Linda 01/13/2019 7:52 AM
[2019-01-13 08:09] LABS: AGAP 9; BUN 26 mg/dL (8-22); CHLORIDE 102 mmol/L (98-107); COSMO 283; CREATININE 0.5 mg/dL (0.5-0.9); ESTIMATED GFR > 60; GLUCOSE 117 mg/dL (70-104); POTASSIUM 3.7 mmol/L (3.5-5.1); SODIUM 139 mmol/L (136-145); TCO2 28 mmol/L (25-35)
[2019-01-13] MEDS: MUCOMYST 20% INH SCH ×2 (08:09→19:09)
[2019-01-13] MEDS: ROCEPHIN 1 GM in NS 50 ML IV SCH (09:42)
[2019-01-13] MEDS: MIRALAX PO SCH ×2 (09:42→20:15)
[2019-01-13] MEDS: NICODERM PATCH TD SCH (09:42)
[2019-01-13] MEDS: ZITHROMAX PO SCH (09:43)
[2019-01-13] MEDS: TESSALON PO SCH ×3 (09:43→18:08)
--- NOTE | 2019-01-13 13:07 | PROGRESS NOTE ---
DATE: 01/13/2019 SUBJECTIVE: The patient is resting comfortably in bed. No acute events noted overnight. OBJECTIVE: Vital Signs: Temperature 97.8 degrees, blood pressure 142/76, heart rate 78, respirations 14, O2 saturation 95% on 2 L nasal cannula. General: This is a chronically ill- appearing elderly female lying in bed in no acute distress. Heart: S1, S2 normal. Regular rate and rhythm. Lungs: Equal air entry bilaterally. No wheezing. No rales. Abdomen: Positive bowel sounds. Soft, nontender, nondistended. Extremities: No edema, no cyanosis. Neurologic: The patient is alert and oriented x4. LABORATORY DATA: White blood cell count 10, hemoglobin 11, hematocrit 34, platelets 511,000. Sodium 139, potassium 3.7, chloride 102, CO2 28, BUN 26, creatinine 0.5 glucose 117. Chest x-ray shows resolution of the pulmonary edema. ASSESSMENT AND PLAN: 1. Acute hypoxemic respiratory failure. Continue with supplemental oxygen. 2. Acute chronic obstructive pulmonary disease exacerbation. Continue on IV steroids, bronchodilator therapy and supplemental oxygen. 3. Acute pulmonary edema, resolved. 4. L2 compression fracture. Continue with TLSO brace. Physical therapy has been consulted to assist with mobilization. 5. Constipation. Continue with scheduled laxative therapy. 6. Tobacco dependence. The patient has been counseled about smoking cessation. 7. Deep vein thrombosis prophylaxis. Continue on heparin. 8. Disposition. We will await the physical therapy assessment to determine whether the patient would benefit from inpatient rehab. cc: Jelly Sawyer MD
[2019-01-13] MEDS: SENOKOT PO SCH (20:16)
[2019-01-13] MEDS: COREG PO SCH (20:46)
[2019-01-13] MEDS: DESYREL PO SCH (20:47)
--- NOTE | 2019-01-13 21:03 | GENERAL SURGERY PROGRESS NOTE ---
DATE: 01/13/2019 SUBJECTIVE: No abdominal pain. No nausea, vomiting. She is still short of breath and on 4 L nasal cannula. OBJECTIVE: She is alert. Abdomen is soft, nontender, nondistended. Cardiovascular: Normal rate. DIAGNOSTIC STUDIES: White count down to 10, hematocrit 34. Creatinine 0.5. ASSESSMENT AND PLAN: A 73-year-old female with severe chronic obstructive pulmonary disease. She presented and was found have gallstones, but I suspect she is asymptomatic from this. We will continue to monitor closely. cc: Chema Gan MD
[2019-01-14] MEDS: DUONEB (A & A) INH SCH ×6 (02:55→23:21)
[2019-01-14] MEDS: SOLU-MEDROL IV SCH ×2 (06:24→18:04)
[2019-01-14] MEDS: PERCOCET-5 PO PRN ×3 (06:25→16:38)
[2019-01-14] MEDS: PRILOSEC PO SCH (06:25)
[2019-01-14] MEDS: SYNTHROID PO SCH (06:25)
[2019-01-14 07:22] LABS: HEMATOCRIT 35.7 % (37.0-47.0); HEMOGLOBIN 11.9 g/dL (12.0-16.0); MCH 31.8 PG (27-31); MCHC 33.3 g/dL (33-37); MCV 95.5 FL (81-99); MPV 9.4 FL (7.4-10.4); RBC 3.74 XMIL (4.2-5.4); RDW 13.4 % (11.5-14.5); WBC 8.76 X1000 (4.8-10.8)
[2019-01-14 07:43] LABS: AGAP 9; BUN 23 mg/dL (8-22); CALCIUM 8.6 mg/dL (8.8-10.2); CHLORIDE 102 mmol/L (98-107); COSMO 283; CREATININE 0.4 mg/dL (0.5-0.9); ESTIMATED GFR > 60; GLUCOSE 132 mg/dL (70-104); SODIUM 139 mmol/L (136-145); TCO2 28 mmol/L (25-35)
[2019-01-14] MEDS: MUCOMYST 20% INH SCH ×2 (08:09→19:15)
[2019-01-14] MEDS: ROCEPHIN 1 GM in NS 50 ML IV SCH (09:30)
[2019-01-14] MEDS: LEXAPRO PO SCH (09:30)
[2019-01-14] MEDS: COLACE PO SCH (09:30)
[2019-01-14] MEDS: TESSALON PO SCH ×3 (09:30→18:04)
[2019-01-14] MEDS: ABILIFY PO SCH (09:30)
[2019-01-14] MEDS: MIRALAX PO SCH ×2 (09:30→21:10)
[2019-01-14] MEDS: NICODERM PATCH TD SCH (09:30)
[2019-01-14] MEDS: LIPITOR PO SCH (09:30)
[2019-01-14] MEDS: COREG PO SCH ×2 (09:30→21:10)
[2019-01-14] MEDS: NORVASC PO SCH (09:30)
[2019-01-14] MEDS: XARELTO PO SCH (09:31)
--- NOTE | 2019-01-14 14:18 | GENERAL SURGERY PROGRESS NOTE ---
DATE: 01/14/2019 SUBJECTIVE: She is eating. No abdominal pain. Breathing about the same. No fevers. No tachycardia. OBJECTIVE: Oxygen saturations remained in the 90s on 2 L nasal cannula. General: She is alert. Cardiovascular: Normal rate. Abdomen is soft, nontender, nondistended. I reviewed her labs. White count is normal at 8. Creatinine is 0.4. ASSESSMENT AND PLAN: This is a 73-year-old female admitted with chronic obstructive pulmonary disease exacerbation, possible pneumonia. She has gallstones but I do not suspect any significant issues associated with these. At this juncture, no signs of cholecystitis or biliary obstruction. We will continue to monitor her from a surgical standpoint. I can follow her as an outpatient. cc: Chema Gan MD
--- NOTE | 2019-01-14 18:43 | PROGRESS NOTE ---
DATE: 01/14/2019 INTERVAL HISTORY: The patient's respiratory status continues to improve. Working on weaning off of oxygen. Did well with physical therapy. No new complaints. No acute events overnight. REVIEW OF SYSTEMS: A 12-point review of systems negative, except as per interval history. LABORATORY: WBC 8.76, hemoglobin 11.9, hematocrit 35.7, platelets 41,000. Basic metabolic panel essentially normal aside from glucose 132. VITALS: Temperature max 98.8 degrees, pulse 69, respirations 19, blood pressure 129/58, O2 saturation 94% on 2 L by nasal cannula. PHYSICAL EXAMINATION: General: No acute distress. Vitals: As above. HEENT: Normocephalic, atraumatic. Moist mucous membranes. No cervical adenopathy. Cardiovascular: Regular rate and rhythm. No murmurs noted. Pulmonary: No wheezing at this point. Slightly decreased air entry throughout, but otherwise largely clear. Abdomen: Soft, nontender, nondistended. Bowel sounds positive. Extremities: Peripheral pulses intact. No clubbing or cyanosis. Neurologic: Cranial nerves grossly intact. No focal deficits identified. Psychiatric: Awake, alert, and oriented x3. Skin: No new rashes or lesions identified. ASSESSMENT AND PLAN: 1. Acute hypoxic respiratory failure, chronic obstructive pulmonary disease exacerbation, likely acute on chronic diastolic congestive heart failure. Oxygenation much improved. Reasonable saturations on 2 L and may be able to wean off oxygen entirely later today. Pulmonary edema markedly improved on last chest x-ray. The patient is symptomatically much improved. Holding on further diuresis. Continue nebulizers. We will wean steroids. If she continues to improve, then may be able to go home tomorrow. There was some consideration for discharge to SNF, but patient is actually doing quite well with physical therapy and would prefer to discharge to home. 2. L2 compression fracture. Continue to wear brace when out of bed. 3. Hypothyroidism. Continue home Synthroid. 4. Tobacco abuse. Patient strongly counseled on cessation. 5. Atrial fibrillation. She has been largely in normal sinus rhythm here. Continue to monitor. Continue home Xarelto and Coreg. 6. Chronic pain. Continue pain medicine. Good control so far. 7. Malnutrition. Patient with BMI of 16. May be contributing to deconditioning, but patient doing okay with physical therapy. Continue to encourage good p.o. intake. 8. Disposition. Continue treatment for COPD as above. Otherwise, much improved, hopefully home tomorrow.
[2019-01-14] MEDS: SENOKOT PO SCH (21:10)
[2019-01-14] MEDS: DESYREL PO SCH (21:10)
[2019-01-15] MEDS: DUONEB (A & A) INH SCH ×6 (03:11→23:30)
[2019-01-15] MEDS: PERCOCET-5 PO PRN ×2 (05:20→14:17)
[2019-01-15] MEDS: SYNTHROID PO SCH (06:31)
[2019-01-15] MEDS: PRILOSEC PO SCH (06:31)
[2019-01-15] MEDS: SOLU-MEDROL IV SCH ×2 (06:32→17:19)
[2019-01-15] MEDS: MUCOMYST 20% INH SCH ×2 (07:39→19:11)
[2019-01-15] MEDS: MIRALAX PO SCH ×2 (08:08→20:42)
[2019-01-15] MEDS: ROCEPHIN 1 GM in NS 50 ML IV SCH (08:08)
[2019-01-15] MEDS: COLACE PO SCH (08:11)
[2019-01-15] MEDS: NORVASC PO SCH (08:11)
[2019-01-15] MEDS: LIPITOR PO SCH (08:12)
[2019-01-15] MEDS: COREG PO SCH ×2 (08:12→20:42)
[2019-01-15] MEDS: NICODERM PATCH TD SCH (08:12)
[2019-01-15] MEDS: TESSALON PO SCH ×3 (08:12→17:18)
[2019-01-15] MEDS: ABILIFY PO SCH (08:12)
[2019-01-15] MEDS: XARELTO PO SCH (08:12)
[2019-01-15] MEDS: LEXAPRO PO SCH (08:12)
--- NOTE | 2019-01-15 18:09 | PROGRESS NOTE ---
DATE: 01/15/2019 INTERVAL HISTORY: Patient's respiratory status approaching baseline, but still with fairly significant dyspnea on exertion and O2 saturation desaturating down to 85 with ambulation. Improved with 2 L of oxygen. Doing fairly well with physical therapy. No new complaints. No acute events overnight. REVIEW OF SYSTEMS: Twelve point review of systems negative except as per interval history. LABS: Hemoglobin A1c 6. VITAL SIGNS: T-max 98.4 degrees, pulse 69, respirations 20, blood pressure 126/44, O2 saturation 94% on 2 L, 85% on room air with ambulation. PHYSICAL EXAMINATION: General: No acute distress. Vital signs: As above. HEENT: Normocephalic, atraumatic. Moist mucous membranes. No cervical adenopathy. Cardiovascular: Regular rate and rhythm. No murmurs noted. Pulmonary: Minimally decreased air entry throughout, but otherwise clear to auscultation. No further wheezing. Abdomen: Soft, nontender, nondistended. Bowel sounds positive. Extremities: Peripheral pulses intact. No clubbing, cyanosis. Neurologic: Cranial nerves grossly intact. No focal deficits identified. Psychiatric: Awake, alert, oriented x3. Cooperative. Skin: No new rashes or lesions seen. ASSESSMENT AND PLAN: 1. Acute hypoxemic respiratory failure, chronic obstructive pulmonary disease exacerbation, likely acute on chronic diastolic congestive heart failure. Oxygenation improved but still some dyspnea on exertion and desaturation with ambulation. I suspect she will require home O2 at this point. Last chest x-ray markedly improved. Wheezing essentially resolved. Discussed going home with home health, but patient uncertain if she can care for herself at home. Still with some dyspnea on exertion, so pursuing rehab placement. On discussion with social work, she is will likely have a spot at rehab tomorrow. 2. L2 compression fracture. Continue brace when up and about. 3. Hypothyroidism. Continue Synthroid. 4. Tobacco abuse. Patient strongly counseled on cessation. 5. Atrial fibrillation. Patient has continued to be largely normal sinus rhythm during this stay. Continue to monitor. Continue home Coreg and Xarelto. 6. Chronic pain. Continue current treatment. Control is good. 7. Malnutrition. Patient with significantly low BMI of 16. May be contributing to deconditioning, but patient doing relatively well with physical therapy and p.o. intake here has been fairly reasonable. 8. Disposition. Anticipate discharge to rehab once bed obtained, likely in the morning.
[2019-01-15] MEDS: SENOKOT PO SCH (20:42)
[2019-01-15] MEDS: DESYREL PO SCH (20:42)
[2019-01-16] MEDS: DUONEB (A & A) INH SCH ×2 (03:14→07:38)
[2019-01-16] MEDS: SYNTHROID PO SCH (06:24)
[2019-01-16] MEDS: SOLU-MEDROL IV SCH (06:24)
[2019-01-16] MEDS: PRILOSEC PO SCH (06:24)
[2019-01-16] MEDS: PERCOCET-5 PO PRN ×2 (06:24→13:44)
--- NOTE | 2019-01-16 07:24 | Diag Imaging Result Doc PS360 ---
EXAM: CHEST-1 VIEW INDICATION: SOB TECHNIQUE: 2 views COMPARISON: 01/13/2019 FINDINGS: There are stable COPD changes. The lungs are grossly clear, otherwise. No new consolidation is identified. Cardiac silhouette is stable. IMPRESSION: Stable chest. Electronically signed by Brice Adams 01/16/2019 7:21 AM
[2019-01-16] MEDS: MUCOMYST 20% INH SCH (07:38)
[2019-01-16] MEDS: ROCEPHIN 1 GM in NS 50 ML IV SCH (09:32)
[2019-01-16] MEDS: NORVASC PO SCH (09:33)
[2019-01-16] MEDS: COREG PO SCH (09:33)
[2019-01-16] MEDS: LEXAPRO PO SCH (09:33)
[2019-01-16] MEDS: LIPITOR PO SCH (09:33)
[2019-01-16] MEDS: XARELTO PO SCH (09:33)
[2019-01-16] MEDS: NICODERM PATCH TD SCH (09:33)
[2019-01-16] MEDS: TESSALON PO SCH ×2 (09:33→13:36)
[2019-01-16] MEDS: COLACE PO SCH (09:33)
[2019-01-16] MEDS: ABILIFY PO SCH (09:34)
[2019-01-16] MEDS: MIRALAX PO SCH (09:34)
--- NOTE | 2019-01-16 10:41 | DISCHARGE SUMMARY ---
ADMISSION DATE: 01/10/2019 DISCHARGE DATE: 01/16/2019 ADMISSION DIAGNOSES: 1. Chronic obstructive pulmonary disease with acute exacerbation. 2. Acute hypoxemic respiratory failure. 3. Productive cough. 4. Hypertension. 5. Atrial fibrillation, chronic in nature. 6. Hypothyroidism. 7. L2 compression fracture. 8. Chronic back pain. 9. Chronic constipation. 10. History of congestive heart failure. 11. Tobacco abuse. 12. Diabetes mellitus type 2. DISCHARGE DIAGNOSES: 1. Acute hypoxemic respiratory failure. 2. Chronic obstructive pulmonary disease exacerbation. 3. Likely acute on chronic diastolic congestive heart failure. 4. L2 compression fracture. 5. Hypothyroidism. 6. Tobacco abuse. Cessation discussed. 7. Atrial fibrillation that is chronic. 8. Chronic back pain. 9. Malnutrition. CONSULTATIONS: 1. Dr. Lombardi with respiratory failure. 2. Dr. Gan for gallbladder. PAST SURGICAL HISTORY: None. HOSPITAL COURSE: Ms. Mary Gaming is a 73-year-old female with a medical history of COPD, chronic atrial fibrillation, chronic back pain with L2 compression fracture, who presented to the emergency department on 01/10/2019 with complaints of worsening shortness of breath, cough without fever, room air oxygen saturation of 84%, which eventually after nebulizers went up to 90% to 94% on room air. She also had complaints of lower back pain from an L2 compression fracture that was post fall on 01/04/2019. Complained of decreased urge to void, was having some incontinence, with a decreased sensation to bilateral lower extremities. She was given Rocephin, DuoNeb, and Solu- Medrol in the ER for her COPD exacerbation, was admitted to the hospital for further treatment and evaluation, asymptomatically treated throughout. Xarelto was initially held, but was resumed. She was given Percocet for pain control. Had constipation, and was given MiraLAX and fleets enema. Secondary to her protein calorie malnutrition, she was given Ensure. General Surgery was consulted due to some imaging reports of severely distended gallbladder, but surgery was not performed. VITAL SIGNS: Temperature 98.1 degrees, heart rate 65, respiratory rate 18, blood pressure 142/60, O2 saturation 97% on 2 L. LABORATORY DATA: White blood cells 8000, hemoglobin 11, hematocrit 35, platelet count 481,000. Sodium 139, potassium 4.0, BUN 23, creatinine 0.4, glucose 132. MICROBIOLOGY: No positive microbiology reports. IMAGING: On 01/10/2019, chest x-ray: Severe emphysema. Abdominal x-ray: Severe constipation with rectal stool impaction. Lumbar spine MRI shows the L2 compression fracture with bone marrow edema. It also showed a severely distended gallbladder and extrahepatic biliary system. Echo showed EF of 55%, mild MR. An abdominal ultrasound showed severely distended gallbladder, several small stones in the gallbladder concerning for cholecystitis, and nonobstructive right renal stenosis. On 01/11/2019, an abdominal x-ray showed improvement in the constipation. On 01/12/2019, chest x-ray showed interstitial edema with advanced COPD. On 01/13/2019, chest x-ray showed resolution of the pulmonary edema and pulmonary vascular congestion. On 01/16/2019, chest x-ray showed a stable chest and stable COPD changes. EKG: Normal sinus rhythm, rate 81, QTc is 473. DISCHARGE DIET: Heart healthy diet. Vanilla Ensure with meals. ACTIVITY: Was working with Physical Therapy. DISCHARGE MEDICATIONS: 1. Amlodipine besylate 10 mg p.o. daily. 2. Colace 100 mg p.o. daily. 3. Coreg 6.25 mg p.o. twice daily. 4. Lipitor 20 mg p.o. daily. 5. Protonix 40 mg p.o. daily. 6. Synthroid 75 mcg p.o. daily. 7. Trazodone 50 mg p.o. nightly. 8. Senokot 1 tablet p.o. nightly. 9. Percocet 10 one tablet p.o. every 6 hours p.r.n. 10. Aripiprazole 10 mg p.o. daily. 11. Lexapro 10 mg p.o. daily. 12. Medrol Dosepak. 13. Nicotine patch 21 mg transdermal daily. 14. ProAir/albuterol 8.5 grams inhaled every 4 hours p.r.n. 15. Xarelto 20 mg p.o. daily with breakfast. PHYSICIAN FOLLOWUPS: Dr. Lombardi and Dr. David Gan. DISCHARGE INSTRUCTIONS: If your condition changes, contact your physician and/or return to the emergency department. Changes may include, but are not limited to, shortness of breath, increased fatigue, excessive bleeding, unexplained weight loss or gain, unmanageable pain, signs or symptoms of infection. DISCHARGE DISPOSITION: [facility]. Dictated by SUMANTH Parish for Ishan Allison MD cc: SUMANTH Parish agree with the above. the following is my own face to face assessment. respiratory status much improved. mildly decreased air entry but lungs otherwise clear at this point. still fairly weak though so going to SNF for a few days. MTDD
[2019-01-16 12:29] VITALS: BP 124/61
== END 2019-01-16 16:39 | DRG 190 ==
LOC: ED 08:18 → SUATTDRO 12:19 → 3N 12:19
PROVIDERS: ATTEND Internal Medicine

== ENCOUNTER 2019-06-23 19:46 | Inpatient (IN) ==
--- NOTE | 2019-06-23 20:15 | EKG Report ---
Test Performed on : 06/23/2019 7:54:26 PM Test Reason : sob Blood Pressure : / mmHG Vent. Rate : 077 BPM Atrial Rate : 061 BPM P-R Int : 000 ms QRS Dur : 076 ms QT Int : 348 ms P-R-T Axes : 000 077 086 degrees QTc Int : 393 ms Accelerated Junctional rhythm. with occasional premature ventricular complexes. ST & T wave abnormality, consider lateral ischemia Abnormal ECG When compared with ECG of 10-JAN-2019 08:27, Significant changes have occurred Unconfirmed Result
[2019-06-23] MEDS ORDERED: ASPIRIN PO ONE (20:37)
[2019-06-23 20:52] LABS: BASO# 0.04 X1000 (0.0-0.2); BASO% 0.5 % (0.0-0.8); EOS# 0.16 X1000 (0.0-0.7); EOS% 1.9 % (0.0-10.0); HEMATOCRIT 33.6 % (37.0-47.0); HEMOGLOBIN 10.9 g/dL (12.0-16.0); IMM GRAN% 1.2 % (0.0-0.5); LYMPH# 1.68 X1000 (1.2-3.4); LYMPH% 20.4 % (20.5-51.1); MCH 31.3 PG (27-31); MCHC 32.4 g/dL (33-37); MCV 96.6 FL (81-99); MONO# 0.48 X1000 (0.11-0.59); MONO% 5.8 % (1.7-9.3); MPV 10.6 FL (7.4-10.4); NEUT# 5.77 X1000 (1.4-6.5); NEUT% 70.2 % (42.2-75.2); PLT 192 X1000 (130-400); RBC 3.48 XMIL (4.2-5.4); RDW 14.3 % (11.5-14.5); WBC 8.23 X1000 (4.8-10.8)
[2019-06-23 21:15] LABS: ESTIMATED GFR > 60
--- NOTE | 2019-06-23 21:16 | Diag Imaging Result Doc PS360 ---
EXAM: CHEST-2 VIEWS - 06/23/2019 HISTORY: sob TECHNIQUE: Chest two views COMPARISON: 01/16/2019 one view chest FINDINGS: Heart size is normal. There are COPD changes with hyperexpanded lungs. There is infiltrate at the left base which is most prominent medially. The remainder the lungs appear clear of acute changes. There is no pleural effusion or pneumothorax identified. IMPRESSION: COPD changes with hyperexpanded lungs. Left basilar infiltrate suspicious for pneumonia. Electronically signed by Cullen Fishman 06/23/2019 9:13 PM
[2019-06-23 21:19] LABS: AGAP 22; ALB/GLOB RATIO 1.7; ALBUMIN 4.1 g/dL (3.5-5.0); ALKALINE PHOSPHATASE 64 U/L (32-104); BUN 17 mg/dL (8-22); CALCIUM 9.2 mg/dL (8.8-10.2); CHLORIDE 96 mmol/L (98-107); CK PROFILE 115 U/L (24-173); COSMO 274; CREATININE 0.8 mg/dL (0.5-0.9); GLUCOSE 202 mg/dL (70-104); GOT 37 U/L (10-30); GPT 17 U/L (10-36); POTASSIUM 5.1 mmol/L (3.5-5.1); SODIUM 133 mmol/L (136-145); TCO2 15 mmol/L (25-35); TOTAL BILIRUBIN 0.34 mg/dL (0.20-1.00); TOTAL PROTEIN 6.5 g/dL (6.3-8.3)
[2019-06-23] MEDS ORDERED: DUONEB (A & A) INH ONE (21:40)
[2019-06-23] MEDS ORDERED: LASIX IV ONE (21:44)
--- NOTE | 2019-06-23 21:44 | PROVIDER DOCUMENTATION ---
HPI-Respiratory General - General Chief Complaint: Shortness of Breath Stated Complaint: DIFFICULTY BREATHING Time Seen by Provider: 06/23/19 21:24 Source: patient Allergies/Adverse Reactions: Patient Allergies Allergy/AdvReac Type Severity Reaction Status Date / Time Penicillins Allergy NAUSEA/VOMI Verified 01/04/19 18:06 TING Home Medications: Home Medication List Medication Instructions Recorded Confirmed Last Taken Type ATORVAstatin [Lipitor] 20 mg PO DAILY 01/10/19 06/24/19 Unknown History Amlodipine Besylate 5 mg PO DAILY 01/10/19 06/24/19 Unknown History Carvedilol [Coreg] 3.12 mg PO BID 01/10/19 06/24/19 Unknown History Docusate Sodium [Colace] 100 mg PO DAILY 01/10/19 06/24/19 Unknown History Levothyroxine [Synthroid] 75 mcg PO DAILY 01/10/19 06/24/19 Unknown History Pantoprazole [Protonix] 40 mg PO DAILY@0700 01/10/19 06/24/19 Unknown History Albuterol Sulfate [Proair Hfa] 8.5 gm INHALATION Q4H PRN PRN #1 01/15/19 Unknown Rx hfa.[email or web address].[email or web address] Rivaroxaban [Xarelto] 20 mg PO WBREAKFAST tab 01/15/19 06/24/19 Unknown Rx Aripiprazole 10 mg PO DAILY #30 tab 01/16/19 06/24/19 Unknown Rx Escitalopram Oxalate [Lexapro] 10 mg PO DAILY #30 tab 01/16/19 06/24/19 Unknown Rx Sennosides [Senokot] 1 ea PO QHS tab 01/16/19 06/24/19 Unknown Rx Trazodone [Desyrel] 50 mg PO QHS #30 tab 01/16/19 06/24/19 Unknown Rx Hydrocodone/Acetaminophen [[place] 5 mg PO 2-4XDAY PRN PRN 06/24/19 06/24/19 Unknown History 5-325 Tablet] ROSUVAstatin [Crestor] 10 mg PO QHS 06/24/19 06/24/19 Unknown History - History of Present Illness-Resp Nature of Presenting Problem: Patient is a 74 year old white female with severe COPD requiring continuous home oxygen at 3L/min and CAD who presents with increasing shortness of breath since yesterday with nonproductive cough. Denies fever. Complained of substernal chest pain after arrival that is now gone. Quality of Pain: reports: aching Severity in ED: reports: mild Onset/Duration: reports: unsure Timing: reports: gone now Exposure: reports: unknown cause Cough Quality/Degree: reports: moderate Review of Systems - Adult - REVIEW OF SYSTEMS - ADULT Constitutional: denies: chills, fever Eyes: reports: no symptoms reported Ears, Nose, Mouth & Throat: reports: no symptoms reported Cardiovascular: reports: see HPI, chest pain Respiratory: reports: shortness of breath, wheezing Gastrointestinal: denies: abdominal pain, nausea, vomiting Genitourinary: denies: dysuria Integumentary: reports: no symptoms reported Neurological: reports: no symptoms reported Psychiatric: reports: no symptoms reported Endocrine: reports: no symptoms reported Allergic/Immunologic: reports: no symptoms reported All Other Systems: Reviewed and Negative Past History - Adult - PAST MEDICAL HISTORY-ADULT Review of Records: reports: Old Records Reviewed, Nursing Assessment Review, Medications Reviewed, Social history reviewed & non-contributory. Major Childhood Illnesses: reports: denies history Cardiovascular: reports: CAD, [place] Respiratory: reports: COPD Gastrointestinal: reports: denies history Genitourinary: reports: denies history Musculoskeletal: reports: denies history Neurological: reports: denies history Psychiatric: reports: denies history Endocrine/Immune: reports: denies history - PRIOR SURGERIES/PROCEDURES Surgical/Procedure History: reports: hysterectomy, orthopedic (extremity) (spine surgery) - FAMILY HISTORY Family History: reviewed, not pertinent - SOCIAL HISTORY Smoking: quit less than 1 year (smoked 1ppd for past 40 years) Alcohol Use Frequency: rarely Living Situation: family Physical Exam-General - PHYSICAL EXAM-ADULT Initial Vital Signs Reviewed: Yes - CONSTITUTIONAL General Appearance: alert - EYES Eyes: other (clear) - HEAD, EARS, NOSE, MOUTH & THROAT HENMT: moist mucous membranes - NECK Neck: supple - RESPIRATORY Respiratory: decreased breath sounds, wheezing, other (coarse basilar lung sounds) - CARDIOVASCULAR Cardiovascular: regular rate, rhythm - GASTROINTESTINAL (ABDOMEN) Abdominal Exam: non tender, soft - LYMPHATIC Lymphatic: no adenopathy - MUSCULOSKELETAL Back Exam: normal inspection, no CVA tenderness Extremity: normal range of motion, non-tender - SKIN Integumentary: normal turgor, warm/dry - NEUROLOGIC Neurologic: grossly normal - PSYCHIATRIC Psych/Mental Status: oriented x 3, anxious Progress - PLAN OF CARE/RESULTS Progress/Plan/Lab Results: Laboratory Results - last 24 hr 06/23/19 06/23/19 06/23/19 20:11 20:11 20:11 WBC RBC Hgb Hct MCV MCH MCHC RDW Std Deviation Plt Count MPV Immature Gran % (Auto) Neut % (Auto) Lymph % (Auto) [place] % (Auto) Eos % (Auto) Baso % (Auto) Immature Gran # (Auto) Neut # (Auto) Lymph # (Auto) [place] # (Auto) Eos # (Auto) Baso # (Auto) Percent Retic Retic Hgb Equivalent PT INR PTT (Actin FS) Sodium 133 L Potassium 5.1 Chloride 96 L Carbon Dioxide 15 L Anion Gap 22 BUN 17 Creatinine 0.8 Estimated GFR/1.73 m2 > 60 BUN/Creatinine Ratio 21 Glucose 202 H Calculated Osmolality 274 Calcium 9.2 Total Bilirubin 0.34 AST 37 H ALT 17 Alkaline Phosphatase 64 Creatine Kinase 115 Troponin T High Sens Wzi-N-Wavvnlgrxuk Pept 5180 H Total Protein 6.5 Albumin 4.1 Globulin 2.4 Albumin/Globulin Ratio 1.7 Plasma Lactate 6.5 H* 06/23/19 06/23/19 06/23/19 20:11 20:11 21:50 WBC 8.23 RBC 3.48 L Hgb 10.9 L Hct 33.6 L MCV 96.6 MCH 31.3 H MCHC 32.4 L RDW Std Deviation 14.3 Plt Count 192 MPV 10.6 H Immature Gran % (Auto) 1.2 H Neut % (Auto) 70.2 Lymph % (Auto) 20.4 L [place] % (Auto) 5.8 Eos % (Auto) 1.9 Baso % (Auto) 0.5 Immature Gran # (Auto) 0.10 H Neut # (Auto) 5.77 Lymph # (Auto) 1.68 [place] # (Auto) 0.48 Eos # (Auto) 0.16 Baso # (Auto) 0.04 Percent Retic Retic Hgb Equivalent PT 28.6 H INR 2.60 PTT (Actin FS) 41.9 H Sodium Potassium Chloride Carbon Dioxide Anion Gap BUN Creatinine Estimated GFR/1.73 m2 BUN/Creatinine Ratio Glucose Calculated Osmolality Calcium Total Bilirubin AST ALT Alkaline Phosphatase Creatine Kinase Troponin T High Sens 144 H* Wxs-X-Irqmcoljibg Pept Total Protein Albumin Globulin Albumin/Globulin Ratio Plasma Lactate 06/23/19 06/23/19 21:53 21:53 WBC RBC Hgb Hct MCV MCH MCHC RDW Std Deviation Plt Count MPV Immature Gran % (Auto) Neut % (Auto) Lymph % (Auto) [place] % (Auto) Eos % (Auto) Baso % (Auto) Immature Gran # (Auto) Neut # (Auto) Lymph # (Auto) [place] # (Auto) Eos # (Auto) Baso # (Auto) Percent Retic 0.94 Retic Hgb Equivalent 33.8 PT INR PTT (Actin FS) Sodium Potassium Chloride Carbon Dioxide Anion Gap BUN Creatinine Estimated GFR/1.73 m2 BUN/Creatinine Ratio Glucose Calculated Osmolality Calcium Total Bilirubin AST ALT Alkaline Phosphatase Creatine Kinase Troponin T High Sens 205 H* [id number]-Jhfuncfbdsb Pept Total Protein Albumin Globulin Albumin/Globulin Ratio Plasma Lactate Orders Category Date Time Status Admit - [facility] Routine AdmDCTranf 06/24/19 00:48 Active Elevate Head of Bed DIRECTED Care 06/24/19 00:48 Active Encourage Fluids DIRECTED Care 06/24/19 00:48 Active Intake and Output-Strict Q 8-HR ASSESS Care 06/24/19 00:48 Active NEWS Score 2-4:Order NEWS Lactate Series NOW Care 06/23/19 19:59 Active Nursing- Assist w/ IS as order ORDERED Care 06/24/19 00:48 Active Nursing- MD Consult Request ROUTINE Care 06/24/19 00:48 Active Oxygen Therapy- ED Nursing DIRECTED Care 06/23/19 20:37 Completed Turn, Cough and Deep Breathe Q2HR Care 06/24/19 00:48 Active Vital Signs Order Q 8-HR ASSESS Care 06/24/19 00:48 Active Z-Document. for Tele Applied ORDERED Care 06/24/19 00:48 Completed Physician/Provider Consults Routine Cons 06/24/19 00:48 Ordered Heart Healthy Diet Diet 06/24/19 00:49 Active CHEST-2 VIEWS [RAD] Stat Exams 06/23/19 20:37 Completed A1C HGB W EST AVG GLUCOSE [CHEM] Routine Lab 06/24/19 06:37 Completed BASIC METABOLIC PANEL [CHEM] Routine Lab 06/24/19 06:37 Completed BLOOD CULTURE [BLDCUL] Stat Lab 06/23/19 20:09 Results CBC WITH DIFF [HEME] Routine Lab 06/24/19 06:37 Completed CBC WITH ELECTRONIC DIFF [HEME] Stat Lab 06/23/19 20:11 Completed CK PROFILE [SP CHEM] Stat Lab 06/23/19 20:11 Completed COMPREHENSIVE METABOLIC PANEL [CHEM] Stat Lab 06/23/19 20:11 Completed FERRITIN Routine Lab 06/24/19 06:37 Completed FOLATE Routine Lab 06/24/19 06:37 Completed LACTATE, PLASMA [CHEM] Lab 06/23/19 23:44 Completed LACTATE, PLASMA [CHEM] Lab 06/24/19 02:45 Completed LACTATE, PLASMA [CHEM] Q3H Lab 06/23/19 20:11 Completed LIPID PROFILE W/CALC LDL [LIPIDS] Routine Lab 06/24/19 06:37 Completed MAGNESIUM [CHEM] Routine Lab 06/24/19 06:37 Completed PRO B-NATRIURETIC PEPTIDE Stat Lab 06/23/19 20:11 Completed PROTIME WITH INR [COAG] Stat Lab 06/23/19 21:50 Completed PTT [COAG] Stat Lab 06/23/19 21:50 Completed RETIC COUNT [HEME] Stat Lab 06/23/19 21:53 Completed TOTAL IRON [CHEM] Routine Lab 06/24/19 06:37 Completed TROPONIN T HIGH SENSITIVITY Routine Lab 06/24/19 06:37 Completed TROPONIN T HIGH SENSITIVITY Stat Lab 06/23/19 20:11 Completed TROPONIN T HIGH SENSITIVITY Stat Lab 06/23/19 21:53 Completed TSH Routine Lab 06/24/19 06:37 Completed VITAMIN B12 Routine Lab 06/24/19 06:37 Completed 0.9% Sodium Chloride Inj [Ns] 1,000 ml Med 06/24/19 00:48 Discontinued IV 126 mls/hr Acetaminophen [Tylenol] Med 06/24/19 00:48 Active 650 mg PO Q4H PRN PRN Albuterol 2.5MG/Ipratrop 0.5MG [Duoneb (A & A)] Med 06/23/19 21:40 Discontinued 3 ml INH NOW ONE Albuterol 2.5MG/Ipratrop 0.5MG [Duoneb (A & A)] Med 06/24/19 07:30 Discontinued 3 ml INH RTDAILY Albuterol 2.5MG/Ipratrop 0.5MG [Duoneb (A & A)] Med 06/24/19 04:00 Active 3 ml INH RTQ6H Amlodipine [Norvasc] Med 06/24/19 09:00 Discontinued 5 mg PO DAILY Arformoterol Neb [Brovana Neb] Med 06/24/19 07:30 Active 15 microgm INH RTBID Aspirin Med 06/23/19 20:37 Discontinued 325 mg PO NOW ONE Aspirin EC Med 06/24/19 09:00 Active 81 mg PO DAILY Azithromycin 500 mg/Ns [Zithromax 500 mg/Ns] Med 06/23/19 22:08 Discontinued 500 mg in 250 ml IV NOW Azithromycin 500 mg/Ns [Zithromax 500 mg/Ns] Med 06/24/19 22:00 Active 500 mg in 250 ml IV Q24H CefTRIAXONE [Rocephin] 1 gm Med 06/23/19 21:46 Discontinued 0.9% Sodium Chloride Inj [Ns] 50 ml IV NOW CefTRIAXONE [Rocephin] 1 gm Med 06/24/19 22:00 Active 0.9% Sodium Chloride Inj [Ns] 50 ml IV Q24H Enoxaparin [Lovenox] Med 06/23/19 23:24 Discontinued 40 mg SUBQ NOW ONE Furosemide [Lasix] Med 06/23/19 21:44 Discontinued 40 mg IV NOW ONE Levothyroxine [Synthroid] Med 06/24/19 07:00 Active 75 microgm PO DAILY@0700 Methylprednisolone Sod Succ [Solu-Medrol] Med 06/23/19 21:46 Discontinued 125 mg IV STAT ONE Pantoprazole [Protonix] Med 06/24/19 09:00 Active 40 mg PO DAILY Prednisone Med 06/24/19 09:00 Active 40 mg PO DAILY Aerosol Treatments Routine Ot 06/23/19 21:40 Completed Aerosol Treatments Routine Ot 06/24/19 00:48 Completed Aerosol Treatments Stat Ot 06/23/19 21:40 Completed Aerosol Treatments Stat Ot 06/24/19 00:48 Completed Incentive Spirometer Routine Ot 06/24/19 00:48 Completed Oxygen Device Routine Ot 06/24/19 00:48 Completed Pulse Oximetry Routine Ot 06/24/19 00:48 Completed Telemetry [OM.EQ] Routine Ot 06/24/19 00:48 Active EKG [EKG] Stat Ther 06/23/19 19:48 Draft EKG [EKG] Stat Ther 06/23/19 22:02 Draft Transfer/Admit Order [TRANSFER] Routine Transfer 06/23/19 22:22 Completed paged hospitalist, Dr. Das, at 2130 to admit patient report given to Dr. Das at 2155 Elevated D-dimer is most likely due to underlying hypoxemia which will elevate d-dimer rather than sepsis, patient has CHF who would not tolerate IV fluid boluses Result Diagrams: 06/24/19 06:37 06/24/19 06:37 - XRAY 1 XRAY Study: Chest (left basilar infiltrate, COPD) - CONSULTS/PCP/HOSPITALIST Notification #1 *Consult/PCP/Hospitalist*: gary Das service Consult Disposition: Admit #2 Consult: Dr. Zhang, event sales representative Time Discussed: 23:35 Reason/Comments: recommend admit to hospitalist svc Consult Disposition: Admit Departure - Departure Date of Disposition Decision: 06/24/19 Time of Disposition Decision: 00:53 DIAGNOSIS: COPD exacerbation, Elevated troponin, Lactic acidosis CHF (congestive heart failure) Qualifiers: Heart failure type: unspecified Heart failure chronicity: unspecified Qualified Code(s): I50.9 - Heart failure, unspecified LLL pneumonia Qualifiers: Pneumonia type: due to unspecified organism Qualified Code(s): J18.1 - Lobar pneumonia, unspecified organism Disposition: ADMITTED INPATIENT 09 Certified Medical Emergency: Emergent Condition: Stable - Critical Care Note This patient required my direct & personal management of CC.: No Attestation - Physician/ MAURICIO Attestation Patient care was provided by Advanced Practice Provider:: No The physician spent face to face time with patient:: Yes Advanced Practice Provider documentation review:: Supervising physician onsite and consulted in the evaluation and care of this patient. The physician did have a face to face encounter with the patient.
[2019-06-23] MEDS ORDERED: SOLU-MEDROL IV ONE (21:46)
[2019-06-23] MEDS ORDERED: ROCEPHIN 1 GM in NS 50 ML IV ONE (21:46)
[2019-06-23 22:07] LABS: INR 2.6; PROTIME 28.6 Seconds (11.0-16.0)
[2019-06-23 22:08] LABS: PTT 41.9 Seconds (22.3-41.8)
[2019-06-23] MEDS ORDERED: ZITHROMAX 500 MG/NS 500 MG/250 ML IVPB IV ONE (22:08)
[2019-06-23 22:48] LABS: RETIC% 0.94 % (0.8-2.1); RETIC-HE 33.8 PG (28.2-36.6)
[2019-06-23] MEDS ORDERED: LOVENOX SUBQ ONE (23:24)
--- NOTE | 2019-06-23 23:36 | HISTORY AND PHYSICAL ---
REASON FOR ADMISSION: A 4-day history of dyspnea. PRIMARY CARE PHYSICIAN: Zohaib Pearce Jr., MD. HISTORY OF PRESENT ILLNESS: Ms. Gaming is 74-year-old woman with a past medical history of end- stage COPD, atrial fibrillation, diastolic heart failure, hypertension, hypothyroidism, and chronic low back pain. She recently stopped smoking 3 months ago after her last admission 6 months ago for pneumonia. She comes today complaining of a 4-day history of worsening shortness of breath with chills but no fever. No upper respiratory symptoms. No close contacts. She says she has been having a persistent dry cough, unable to expectorate what she feels is trapped in the lungs. She says she has tried increasing her home O2 without any success. Denies any leg swelling, PND or orthopnea. She denied any chest pain except when she came to the ER, but she reports having some pressure-like chest pain for 1 hour and it spontaneously resolved, no associated anginal symptoms. No palpitations or lightheadedness, but says she has been feeling weak over the last 2 days. She has no nebulizer treatments at home. REVIEW OF SYSTEMS: Twelve systems were done, positive findings per HPI. ALLERGIES: No allergies. HOME MEDICATIONS: Pending at this time. PAST SURGICAL HISTORY: She has had a hysterectomy and neck surgery. SOCIAL HISTORY: She stopped smoking 3 months ago. No alcohol or drug use. She lives with her son. FAMILY HISTORY: Notable for brain cancer and heart disease. LABORATORY DATA: White count 8000, hemoglobin and hematocrit 10 and 30, platelets 192,000, normal differential. Sodium 133, BUN 17, creatinine 0.8, glucose 202, AST is 37, ALT 17. Troponin is 144. ProBNP is 5100. Lactate is 6.5. IMAGING: Chest film shows left lower lobe with severe COPD. EKG showed atrial fibrillation with occasional PVCs. Nonspecific ST-wave changes noted. Rate is about 80 franklin. PHYSICAL EXAMINATION: VITAL SIGNS: Heart rate 77, temperature 97.8, respiratory rate was 28 initially, but now is 24, blood pressure 138/68, O2 saturation 94% on 3 L. GENERAL: She is an elderly woman not in acute distress. Alert and oriented x3. Normal mood and affect. HEENT: Head is normocephalic and atraumatic. EYES: [place]. EOMI. Anicteric. Not pale. ENT exam is grossly normal. Some cyanosis. NECK: Supple. No JVD or carotid bruit. No thyromegaly. No hepatojugular reflux. CHEST: Decreased air entry in both lung alexandra but no wheezes, questionable left basal crepitations. CARDIOVASCULAR: First and second heart sounds heard. No gallops, murmurs or rubs. Rhythm is irregular. ABDOMEN: Full, soft, nontender. No organomegaly. Bowel sounds are hypoactive. RECTAL: Deferred at this time. EXTREMITIES: The patient has slightly diminished pulses in all extremities, symmetrical. No edema clubbing or peripheral cyanosis noted. Distal extremities are slightly warm to touch. Good capillary refill. NEUROLOGIC: No gross focal deficits. SKIN: Intact. No breakdown, lesion or erythema. Good turgor. MUSCULOSKELETAL: Exam is grossly normal, but she has diffuse sarcopenia. ASSESSMENT: 1. Acute on chronic respiratory failure secondary to mild COPD exacerbation and left lower lobe pneumonia. 2. Left lower lobe pneumonia. 3. COPD exacerbation. 4. Chronic diastolic heart failure, stable. 5. Atrial fibrillation. 6. Hypertension. 7. Hyperglycemia. 8. Anemia of chronic inflammation. 9. Moderate malnutrition. 10. Hypothyroidism. PLAN: The patient will be transferred to Dr. Pearce' service in the a.. Dr. Moreno was consulted. A 2nd troponin is being ordered to see if her ischemic injury is progressing. For now we will put her on aspirin, a higher statin dose. I reviewed the patient's old medication list and she tells me she has been on blood thinners, i.e., Xarelto. We will hold off on Lovenox for that reason. Anemia workup will also be ordered. Long and short-acting bronchodilators and a short course of steroids will also be initiated. Rule out type 2 diabetes in this patient on account of her glucose. Await official home medications and reconcile them as needed. Aspirin will also be started along with the aforementioned statins, and the beta blockers will be initiated except if the patient is already on this. Elevated lactate in my opinion noted is probably due to chronic hypoxia in this patient. However, we will give the patient a cautious 1 L of fluid challenge and repeat a lactate in the morning, as well as a troponin and see if this responds to crystalloid treatment. If not and vital signs are stable, which they are at this time, then this could also be due to chronic hypoxia. The patient does not have any symptoms suggestive of sepsis or any acute symptoms of CHF at this point in time. An echocardiogram will also be ordered if one has not been done in 6 months. cc: MD Zohaib Barnes Jr, MD
[2019-06-24] MEDS ORDERED: NS 1,000 ML IV SCH (00:48)
--- NOTE | 2019-06-24 01:33 | EKG Report ---
Test Performed on : 06/24/2019 01:23:46 AM Test Reason : pain Blood Pressure : / mmHG Vent. Rate : 071 BPM Atrial Rate : 071 BPM P-R Int : 168 ms QRS Dur : 076 ms QT Int : 458 ms P-R-T Axes : 087 084 246 degrees QTc Int : 497 ms Normal sinus rhythm. Marked T wave abnormality, consider anterolateral ischemia T wave inversion in Inferior leads Prolonged QT Abnormal ECG When compared with ECG of 24-JUN-2019 01:23, (Unconfirmed) fusion complexes are no longer present premature ventricular complexes. are no longer present T wave inversion in the inferior, anterior, and lateral leads are more pronounced. Confirmed by Abdiel Chapman MD ([id number]) on 06/24/2019 7:59:58 PM
[2019-06-24] MEDS: DUONEB (A & A) INH SCH ×4 (03:38→22:26)
[2019-06-24] MEDS: SYNTHROID PO SCH (06:45)
[2019-06-24 07:05] LABS: BASO# 0.01 X1000 (0.0-0.2); BASO% 0.1 % (0.0-0.8); HEMATOCRIT 32.7 % (37.0-47.0); HEMOGLOBIN 10.5 g/dL (12.0-16.0); LYMPH# 0.86 X1000 (1.2-3.4); LYMPH% 11.9 % (20.5-51.1); MCH 29.3 PG (27-31); MCHC 32.1 g/dL (33-37); MCV 91.3 FL (81-99); MONO# 0.96 X1000 (0.11-0.59); MONO% 13.3 % (1.7-9.3); MPV 10.7 FL (7.4-10.4); NEUT# 5.41 X1000 (1.4-6.5); NEUT% 74.7 % (42.2-75.2); PLT 205 X1000 (130-400); RBC 3.58 XMIL (4.2-5.4); WBC 7.24 X1000 (4.8-10.8)
[2019-06-24 07:20] LABS: HEMOGLOBIN A1C 5.9 % (4.8-6.0)
[2019-06-24] MEDS ORDERED: DUONEB (A & A) INH SCH (07:30)
[2019-06-24 07:35] LABS: AGAP 14; BUN 12 mg/dL (8-22); CALCIUM 8.9 mg/dL (8.8-10.2); CHLORIDE 96 mmol/L (98-107); COSMO 273; CREATININE 0.8 mg/dL (0.5-0.9); ESTIMATED GFR > 60; GLUCOSE 125 mg/dL (70-104); POTASSIUM 4.1 mmol/L (3.5-5.1); SODIUM 136 mmol/L (136-145); TCO2 26 mmol/L (25-35)
[2019-06-24 07:41] LABS: CHOLESTEROL 119 mg/dL (0-200); HDL 82 mg/dL (45-65); LDL 24 mg/dL; MAGNESIUM 1.7 mg/dL (1.5-2.7); TOTAL IRON 9 ug/dL (49-151); TRIGLYCERIDES 64 mg/dL (35-135); VLDL 13 mg/dL
[2019-06-24] MEDS: BROVANA NEB INH SCH ×2 (07:46→22:26)
[2019-06-24 07:47] LABS: TSH 0.1 uIUmL (0.27-4.20)
[2019-06-24] MEDS ORDERED: NORVASC PO SCH (09:00)
--- NOTE | 2019-06-24 09:23 | PROGRESS NOTE ---
DATE: 06/24/2019 SUBJECTIVE: The patient says she has been a little short of breath, she has had a dry cough, placed in the hospital with left lower lobe pneumonia and elevated troponins. Really is not complaining of chest pain but now is complaining of left lower quadrant pain. I think she has had diverticulitis in the past. OBJECTIVE: Vital signs: Blood pressure is 132/57, respirations 14, pulse 77, temperature 97.2 degrees Fahrenheit. HEENT: She is normocephalic. EOMS intact. PERRLA. Throat clear. Lungs: Clear to auscultation and percussion without rhonchi, rales or wheezes at this time. Heart: Regular rate and rhythm without murmurs, gallops or friction rubs. Had an echocardiogram in December of last year that was basically normal. Abdomen: Soft with tenderness in the left lower quadrant. Neurological: Intact grossly. LABORATORY DATA: Electrolytes essentially normal. Has emphysematous changes on her chest x-ray as well. PLAN: We will get a CT scan of the chest, abdomen and pelvis. We will continue IV antibiotics. Repeat a chest x-ray tomorrow. cc: Zohaib Pearce Jr, MD
[2019-06-24] MEDS: ASPIRIN EC PO SCH (09:41)
[2019-06-24] MEDS: PREDNISONE PO SCH (09:42)
[2019-06-24] MEDS: PROTONIX PO SCH (09:42)
[2019-06-24] MEDS ORDERED: LOVENOX SUBQ ONE (11:24)
--- NOTE | 2019-06-24 11:45 | CARDIOLOGY CONSULTATION ---
DATE: 06/24/2019 REASON FOR CONSULTATION: Cardiology was consulted for abnormal cardiac enzymes, abnormal EKG. HISTORY OF PRESENT ILLNESS: Patient admitted with dyspnea on exertion. Ms. Gaming is a 74-year- old, lady with a history of significant COPD, atrial fibrillation paroxysmal. Was admitted yesterday due to shortness of breath for the last 4 days. She also complains of having tightness, discomfort in the left hypochondrium and left chest area. Her cardiac enzymes were abnormal. Electrocardiogram revealed normal sinus rhythm with symmetrical T- wave inversions in the lateral leads. This is different from electrocardiogram compared to an earlier one. Her pain was more towards the hypochondrium rather than the chest. There is no history of palpitations. As far as cough is concerned, it is not associated with any fevers. It is a dry cough. No obvious expectoration at the present time. There is no history of palpitations. There is no dizziness or syncope. REVIEW OF SYSTEMS: A 14-point review of systems was done. GI System: There is no history of nausea, vomiting, or diarrhea. There is no history of hematemesis or melena. Central Nervous System: No focal weakness to suggest a CVA or TIA. System: There is no dysuria or hematuria. PAST MEDICAL HISTORY: 1. COPD. 2. Atrial fibrillation, paroxysmal. 3. History of heart failure. 4. Hypertension. 5. Hyperlipidemia. 6. Ex-smoker. 7. COPD. 8. Bipolar disorder. 9. Hypothyroidism. 10. Depression. CURRENT MEDICATIONS: Include Zithromax, ceftriaxone, methylprednisone, Lasix 40 mg ,aspirin, Protonix 40, levothyroxine 75, enteric-coated aspirin, Brovana nebulizers, amlodipine 5. Home medications also had included Crestor 10 mg, aripiprazole, trazodone, Xarelto 20, atorvastatin 20, levothyroxine, and Coreg 3.125 mg twice daily. SOCIAL HISTORY: The patient quit smoking 3 months ago. No history of alcohol abuse. PAST SURGICAL HISTORY: Hysterectomy, neck surgery. FAMILY HISTORY: Notable for brain cancer and heart disease. ALLERGIES: She is not known to be allergic to any medication. PHYSICAL EXAMINATION: Vital Signs: Blood pressure was 138/68. Examination of her neck, there was no lymphadenopathy. Jugular venous pressure was normal. First and second heart sounds were heard. There was no S3 gallop. Respiratory System: Distant breath sounds are significantly clear. No wheezes. Abdomen: Soft. There was tenderness in the left hypochondrium. Bowel sounds were heard. Central Nervous System: Alert and was moving all 4 extremities. Examination of the extremities revealed no pedal edema. HEENT: Atraumatic, normocephalic. Pupils were equal and reacting to light. Examination of extremities revealed no significant edema. Peripheral pulses were palpable. ASSESSMENT AND PLAN: Ms. Mary Gaming is a 74-year-old, lady with a history of paroxysmal atrial fibrillation, anticoagulation therapy, history of hypertension, hyperlipidemia, COPD, bipolar disorder, hypothyroidism. She is admitted with cough without any fevers and chest and abdominal discomfort. Her cardiac enzymes were 144, 205, and 122. Her main symptoms are more towards the left hypochondrium and had lower chest tightness as well. Of note is that there was a change in her electrocardiogram with symmetrical T-wave inversions noted in the lateral leads. From a cardiac standpoint: 1. We will get an echocardiogram to assess cardiac and valvular function. 2. She has history of paroxysmal atrial fibrillation. She is on Xarelto I have not made any changes or additions at the present time. Given the EKG change noted, the abnormal troponin is likely to be type 2 myocardial infarction. Given her abdominal discomfort, she also is going to undergo CT scan to rule out pneumonia as well as any gastrointestinal pathology. 3. We will get an echocardiogram and recommend further work up. cc: MD Zohaib Novak Jr, MD MTDD
--- NOTE | 2019-06-24 13:50 | ECHO REPORT ---
ORDER DATE: 06/24/2019 INDICATION: Abnormal EKG. FINDINGS: 1. The right atrium appears normal in size. 2. Moderate tricuspid regurgitation. RV systolic pressure is 63 suggesting pulmonary hypertension. 3. Normal RV size and systolic function. 4. No significant pulmonic insufficiency. 5. Severe left atrial enlargement with a volume index of 47. 6. No mitral valve prolapse. Mild mitral regurgitation. No mitral stenosis. 7. Normal LV size, end-diastolic dimension of 3.8 cm. Normal wall thicknesses with a posterior and interventricular septal wall thickness of 0.7 and 1.1 cm respectively. Normal LV systolic function. The estimated EF is 55% to 60% percent. On some views, there does appear to be some hypokinesis of the apex. Grade 2 diastolic dysfunction is noted. 8. Aortic valve opens well. It is trileaflet. Mild insufficiency. No stenosis. 9. Aorta appears normal in visualized segments. 10. No pericardial effusion seen. cc: MD Levon Padilla MD Roger H. Moss Jr, MD
[2019-06-24] MEDS ORDERED: CARDIZEM IV ONE (15:41)
[2019-06-24] MEDS ORDERED: LANOXIN IV ONE (15:50)
[2019-06-24] MEDS: CARDIZEM 100 MG/NS 100 MG/100 ML IVPB IV SCH (15:59)
[2019-06-24] MEDS ORDERED: 1/2 NS 1,000 ML IV SCH (16:00)
--- NOTE | 2019-06-24 16:02 | EKG Report ---
Test Performed on : 06/24/2019 3:38:18 PM Test Reason : CAT call Blood Pressure : / mmHG Vent. Rate : 170 BPM Atrial Rate : 174 BPM P-R Int : 000 ms QRS Dur : 112 ms QT Int : 310 ms P-R-T Axes : 000 -78 184 degrees QTc Int : 521 ms Critical Test Result: High HR Atrial fibrillation. with rapid ventricular response. Left axis deviation Incomplete left bundle branch block Marked ST abnormality, possible inferolateral subendocardial injury Abnormal ECG When compared with ECG of 24-JUN-2019 01:23, (Unconfirmed) Atrial fibrillation. has replaced Sinus rhythm. Vent. rate has increased BY 99 BPM Incomplete left bundle branch block is now present Confirmed by Abdiel Chapman MD ([id number]) on 06/24/2019 8:24:17 PM
[2019-06-24] MEDS: TOPROL XL PO SCH ×2 (16:12→21:16)
[2019-06-24] MEDS ORDERED: XARELTO PO SCH (17:00)
--- NOTE | 2019-06-24 19:39 | Diag Imaging Result Doc PS360 ---
CT THORAX/ABD/PELVIS W/CON - 06/24/2019 INDICATION: LLQ abd pain COMPARISON: None FINDINGS: CHEST: There is no adenopathy. Heart and great vessels are normal. There is dense consolidation of the medial left lower lobe. There is severe COPD. There is some mild mucous plugging of small airways in the right lower lobe. There are moderate degenerative changes of the spine. No acute or suspicious bony lesion. Abdomen pelvis: The gallbladder is very distended. There are small gallstones inside. No biliary dilation. The liver, pancreas, spleen, adrenals, and kidneys are normal. Trace pelvic free fluid. The uterus is absent. Urinary bladder and rectum are normal. No bowel obstruction or inflammation. Normal appendix. Severe vascular disease of the abdominal aorta and its pelvic and femoral branches. There is moderate diverticulosis of the descending and sigmoid colon. There are moderate degenerative changes of the spine. No acute or suspicious bony lesion. IMPRESSION: 1. Left lower lobe pneumonia. Bibasilar small airway mucous plugging. 2. Severe emphysema. 3. Distended gallbladder containing gallstones. They represent acute cholecystitis. Gallbladder ultrasound recommended. 4. Mild diverticulosis coli. This exam was performed using automated exposure control, adjustment of mA or kV according to patient size, and/or use of iterative reconstruction technique Electronically signed by Fadi Linda 06/24/2019 7:37 PM
[2019-06-24] MEDS: ROCEPHIN 1 GM in NS 50 ML IV SCH (21:16)
[2019-06-24] MEDS: LIPITOR PO SCH (21:16)
--- NOTE | 2019-06-24 21:31 | EKG Report ---
Test Performed on : 06/24/2019 6:46:16 PM Test Reason : Verfiy conversion to SR Blood Pressure : / mmHG Vent. Rate : 058 BPM Atrial Rate : 058 BPM P-R Int : 156 ms QRS Dur : 090 ms QT Int : 530 ms P-R-T Axes : 084 078 243 degrees QTc Int : [address] & Marked T wave abnormality, consider anterolateral ischemia T wave inversion in the inferior leads Prolonged QT Abnormal ECG When compared with ECG of 24-JUN-2019 15:38, (Unconfirmed) Sinus rhythm. has replaced Atrial fibrillation. Vent. rate has decreased BY 112 BPM Incomplete left bundle branch block is no longer present ST and T wave abnormalities in the inferior, anterior, and lateral leads are more pronounced. Confirmed by Abdiel Chapman MD ([id number]) on 06/26/2019 7:32:58 PM
[2019-06-24] MEDS: ZITHROMAX 500 MG/NS 500 MG/250 ML IVPB IV SCH (22:32)
[2019-06-25] MEDS: TYLENOL PO PRN ×2 (01:26→18:07)
[2019-06-25] MEDS: DUONEB (A & A) INH SCH ×4 (03:34→23:30)
[2019-06-25] MEDS: CARDIZEM 100 MG/NS 100 MG/100 ML IVPB IV SCH ×2 (04:48→22:41)
[2019-06-25] MEDS: SYNTHROID PO SCH (06:10)
[2019-06-25 06:45] LABS: AGAP 11; BUN 11 mg/dL (8-22); CALCIUM 8.8 mg/dL (8.8-10.2); CHLORIDE 98 mmol/L (98-107); COSMO 266; CREATININE 0.7 mg/dL (0.5-0.9); ESTIMATED GFR > 60; GLUCOSE 110 mg/dL (70-104); MAGNESIUM 1.8 mg/dL (1.5-2.7); POTASSIUM 3.5 mmol/L (3.5-5.1); SODIUM 133 mmol/L (136-145); TCO2 24 mmol/L (25-35)
[2019-06-25 06:46] LABS: BASO# 0.01 X1000 (0.0-0.2); BASO% 0.1 % (0.0-0.8); EOS# 0.01 X1000 (0.0-0.7); EOS% 0.1 % (0.0-10.0); HEMATOCRIT 27.2 % (37.0-47.0); HEMOGLOBIN 9.1 g/dL (12.0-16.0); LYMPH# 2.28 X1000 (1.2-3.4); LYMPH% 18.7 % (20.5-51.1); MCH 30.7 PG (27-31); MCHC 33.5 g/dL (33-37); MCV 91.9 FL (81-99); MONO# 1.41 X1000 (0.11-0.59); MONO% 11.6 % (1.7-9.3); MPV 10.7 FL (7.4-10.4); NEUT# 8.48 X1000 (1.4-6.5); NEUT% 69.5 % (42.2-75.2); PLT 188 X1000 (130-400); RBC 2.96 XMIL (4.2-5.4); RDW 14.3 % (11.5-14.5); WBC 12.19 X1000 (4.8-10.8)
[2019-06-25 06:54] LABS: INR 1.44; PROTIME 17.8 Seconds (11.0-16.0)
--- NOTE | 2019-06-25 07:19 | Diag Imaging Result Doc PS360 ---
EXAM: CHEST-PORTABLE 06/25/2019 HISTORY: pneumonia TECHNIQUE: AP portable at 0614 COMMENT: There is hyperinflation of the lungs and apparent COPD. Considering differences in technique there has been some increase in the opacification the retrocardiac portion of the left lower lobe since 06/23/2019. There is slightly more ill-defined opacity over the left hemidiaphragm compared to the previous examination of 01/16/2019 and there was no previous retrocardiac opacity. IMPRESSION: COPD. Left lower lobe pneumonia. Electronically signed by Marin Garcia 06/25/2019 7:16 AM
--- NOTE | 2019-06-25 07:53 | EKG Report ---
Test Performed on : 06/25/2019 07:18:55 AM Test Reason : afib with rvr Blood Pressure : / mmHG Vent. Rate : 059 BPM Atrial Rate : 059 BPM P-R Int : 142 ms QRS Dur : 076 ms QT Int : 484 ms P-R-T Axes : -18 080 222 degrees QTc Int : 479 ms Sinus bradycardia. with marked sinus arrhythmia. T wave abnormality, consider inferior ischemia T wave abnormality, consider anterolateral ischemia Prolonged QT Abnormal ECG When compared with ECG of 24-JUN-2019 18:46, (Unconfirmed) T wave inversion less evident in Inferior leads Confirmed by Abdiel Chapman MD ([id number]) on 06/26/2019 7:36:24 PM
[2019-06-25] MEDS ORDERED: HEPARIN 1000 UNITS/NS 2,000 UNIT/1,000 ML IV.SOLN ONE (08:21)
[2019-06-25] MEDS ORDERED: ISOPTIN ONE (08:24)
[2019-06-25] MEDS ORDERED: DILAUDID ONE (08:24)
[2019-06-25] MEDS ORDERED: VERSED ONE (08:24)
--- NOTE | 2019-06-25 09:20 | PROGRESS NOTE ---
DATE: 06/25/2019 SUBJECTIVE: The patient has been moved to PVC unit. She developed a rapid ventricular response with her atrial fibrillation yesterday, was placed on Cardizem drip, has converted to sinus rhythm now. Still has had some elevated troponins. No chest pain but has had a little shortness of breath at times. Chest x-ray this morning still shows a left lower lobe pneumonia. OBJECTIVE: Vital Signs: Blood pressure 127/55, respirations 23, pulse 98 degrees Fahrenheit, oxygen saturation is 95% on nasal cannula with 3 L. HEENT: She is normocephalic. EOMs intact. PERRLA. Throat clear. Lungs: Sound clear to auscultation. Heart: Regular rate and rhythm without murmurs, gallops, or friction rubs. Abdomen: Soft. Active bowel sounds. No organomegaly or tenderness. Neurological: Intact grossly. ASSESSMENT: 1. Left lower lobe pneumonia. 2. Elevated troponins. 3. Atrial fibrillation, now converted, with a rapid ventricular response. 4. Bipolar illness. PLAN: We will go to heart catheterization today for evaluation. Appreciate help from Cardiology. cc: Zohaib Pearce Jr, MD
[2019-06-25] MEDS: TOPROL XL PO SCH ×2 (09:25→22:31)
[2019-06-25] MEDS ORDERED: ANESTHESIA PB SET 88 IN 5742 ONE (09:58)
[2019-06-25] MEDS ORDERED: NS 1,000 ML ONE (09:58)
[2019-06-25] MEDS ORDERED: CLAVE TWINSITE 32 IN 11959 ONE (09:58)
[2019-06-25] MEDS ORDERED: LASIX IV ONE (11:09)
--- NOTE | 2019-06-25 11:26 | CARDIAC CATH REPORT ---
PROCEDURE NAME: - INDICATION FOR THE PROCEDURE: Wall motion abnormalities noted on echocardiogram, as well as elevated cardiac enzymes. PROCEDURES PERFORMED: 1. Selective coronary angiography. 2. Left heart catheterization. PROCEDURE IN DETAIL: Ms. Gaming was brought to the catheterization laboratory in the fasting state. Informed consent was obtained. Prepped in the usual fashion. She was anesthetized over the right radial artery after Terrell's test proved adequate. A 5-Colombian sheath was placed via true Seldinger technique. Catheters were introduced. Hemodynamic measurements were made in the ascending thoracic aorta. Coronary angiography was performed in multiple views using JL3.5 and JR4 diagnostic catheters. Left heart catheterization was performed using the JR4. At the conclusion of the procedure, all sheaths and catheters were removed. TR band was left inflated at 11 mL of air with good capillary refill. Good hemostasis. There was 5-10 mL of blood loss. No apparent complications. There was 55 mL of IV contrast. FINDINGS: 1. Left main is extremely short, almost separate ostia. It appears normal. 2. Left anterior descending and circumflex vessels originate from the left main. They appear angiographically normal with no significant flow-limiting disease. 3. Right coronary originates from the right coronary cusp. It appears angiographically normal throughout its course. 4. LV pressure is 133/16 with an EDP of 31. Aortic blood pressure 117/50 with a mean of 75. ASSESSMENT: Ms. Gaming is a 74-year-old female who presented with elevated cardiac enzymes and has wall motion abnormalities on her echocardiogram. PLAN: She has essentially angiographically normal coronaries. She has an elevated EDP. I will discuss further management with her inpatient traffic representative, Dr. Dumas. Would likely continue with diuresis in this patient. cc: MD Zohaib Padilla Jr, MD
[2019-06-25] MEDS: BROVANA NEB INH SCH ×2 (11:48→23:30)
[2019-06-25] MEDS: PROTONIX PO SCH (13:13)
[2019-06-25] MEDS: PREDNISONE PO SCH (13:13)
[2019-06-25] MEDS: ASPIRIN EC PO SCH (13:13)
--- NOTE | 2019-06-25 13:50 | Diag Imaging Result Doc PS360 ---
EXAM: US GB < RUQ (LIMITED) 06/25/2019 HISTORY: gallstones TECHNIQUE: Right upper quadrant ultrasound COMMENT: The visualized portions of the pancreas are within normal limits. There are some atherosclerotic changes in the abdominal aorta. There is no evidence of aneurysm. The inferior vena cava is unremarkable. The liver is unremarkable. There is antegrade flow in the portal vein. There is sediment and small stones layering dependently in the gallbladder. There is no evidence of para cholecystic fluid or gallbladder wall thickening however the gallbladder is somewhat distended. It measures in excess of 9.6 cm. The right kidney is without evidence of hydronephrosis or mass. There are no abnormal fluid collections. There is no sonographic Hull sign. The common duct bile duct is slightly distended at over 7 mm. IMPRESSION: Cholelithiasis and borderline dilatation the common bile duct. Electronically signed by Marin Garcia 06/25/2019 1:48 PM
--- NOTE | 2019-06-25 17:20 | EKG Report ---
Test Performed on : 06/25/2019 4:56:30 PM Test Reason : rhythm change, afib rvr Blood Pressure : / mmHG Vent. Rate : 123 BPM Atrial Rate : 138 BPM P-R Int : 000 ms QRS Dur : 080 ms QT Int : 350 ms P-R-T Axes : 000 078 258 degrees QTc Int : 501 ms Atrial fibrillation. with rapid ventricular response. with premature ventricular or aberrantly conduc michi complexes. ST & T wave abnormality, consider inferior ischemia ST & T wave abnormality, consider anterolateral ischemia Abnormal ECG When compared with ECG of 25-JUN-2019 07:18, (Unconfirmed) Atrial fibrillation. has replaced Sinus rhythm. Vent. rate has increased BY [address] now depressed in Inferior leads T wave inversion more evident in Inferior leads Confirmed by Abdiel Chapman MD ([id number]) on 06/26/2019 7:40:49 PM
[2019-06-25] MEDS: CARDIZEM PO SCH ×2 (18:13→23:35)
[2019-06-25] MEDS: ROCEPHIN 1 GM in NS 50 ML IV SCH (22:18)
[2019-06-25] MEDS: LIPITOR PO SCH (22:31)
[2019-06-25] MEDS: ZITHROMAX 500 MG/NS 500 MG/250 ML IVPB IV SCH (22:31)
[2019-06-26] MEDS: DUONEB (A & A) INH SCH ×4 (03:55→22:55)
[2019-06-26] MEDS: TYLENOL PO PRN ×2 (05:02→21:16)
[2019-06-26] MEDS: CARDIZEM PO SCH ×3 (05:03→17:00)
[2019-06-26] MEDS: SYNTHROID PO SCH (06:16)
[2019-06-26 06:23] LABS: AGAP 12; BUN 14 mg/dL (8-22); CALCIUM 8.2 mg/dL (8.8-10.2); CHLORIDE 98 mmol/L (98-107); COSMO 272; CREATININE 0.7 mg/dL (0.5-0.9); ESTIMATED GFR > 60; GLUCOSE 120 mg/dL (70-104); POTASSIUM 3.3 mmol/L (3.5-5.1); SODIUM 135 mmol/L (136-145); TCO2 25 mmol/L (25-35)
[2019-06-26 07:06] LABS: BASO# 0.01 X1000 (0.0-0.2); BASO% 0.1 % (0.0-0.8); HEMATOCRIT 29.2 % (37.0-47.0); HEMOGLOBIN 9.7 g/dL (12.0-16.0); LYMPH# 1.51 X1000 (1.2-3.4); LYMPH% 13.5 % (20.5-51.1); MCH 29.9 PG (27-31); MCHC 33.2 g/dL (33-37); MCV 90.1 FL (81-99); MONO# 0.93 X1000 (0.11-0.59); MONO% 8.3 % (1.7-9.3); MPV 10.8 FL (7.4-10.4); NEUT# 8.73 X1000 (1.4-6.5); NEUT% 78.1 % (42.2-75.2); PLT 215 X1000 (130-400); RBC 3.24 XMIL (4.2-5.4); RDW 14.5 % (11.5-14.5); WBC 11.18 X1000 (4.8-10.8)
--- NOTE | 2019-06-26 09:20 | PROGRESS NOTE ---
DATE: 06/26/2019 SUBJECTIVE: The patient has not had any complaints today. She did go back in atrial fibrillation with rapid ventricular response yesterday but is now rate controlled. Her ultrasound did show gallstones, but she does not have any symptoms with these. Her CT scan showed diverticulosis but not diverticulitis. Her heart catheterization was essentially normal with no significant coronary artery disease. OBJECTIVE: Blood pressure is 108/58, respirations 19, pulse 76, temperature 98 degrees.HEENT: She is normocephalic. PERRLA. Throat clear. Lungs: Clear to auscultation and percussion without rhonchi, rales, or wheezes though chest x-ray still shows left lower lobe pneumonia that was from yesterday. Abdomen: Soft, active bowel sounds. No organomegaly or tenderness. Heart: Irregular regular without murmurs, gallops, friction rubs. Neurological: Intact grossly. ASSESSMENT: 1. Left lower lobe pneumonia. 2. Atrial fibrillation with rapid ventricular response, now rate controlled. 3. Elevated troponins, but heart catheterization was essentially normal. 4. Left lower quadrant abdominal pain, seems to be mild. CT scan did not show any acute disease. 5. Cholelithiasis. Does not seem to be symptomatic. I have discussed this with her. She does not want surgery right now. PLAN: Continue treatments to try to clear up pneumonia. cc: Zohaib Pearce Jr, MD
[2019-06-26] MEDS: LASIX PO SCH (09:56)
[2019-06-26] MEDS: PREDNISONE PO SCH (09:57)
[2019-06-26] MEDS: PROTONIX PO SCH (09:57)
[2019-06-26] MEDS: ASPIRIN EC PO SCH (09:58)
[2019-06-26] MEDS: TOPROL XL PO SCH ×2 (09:59→21:17)
[2019-06-26] MEDS: KLOR-CON PO SCH (10:13)
[2019-06-26] MEDS: BROVANA NEB INH SCH ×2 (10:30→22:55)
[2019-06-26] MEDS ORDERED: XARELTO PO SCH (17:00)
[2019-06-26] MEDS: ROCEPHIN 1 GM in NS 50 ML IV SCH (21:16)
[2019-06-26] MEDS: LIPITOR PO SCH (21:17)
[2019-06-26] MEDS: ZITHROMAX 500 MG/NS 500 MG/250 ML IVPB IV SCH (21:17)
[2019-06-27] MEDS: CARDIZEM PO SCH ×4 (00:40→18:32)
[2019-06-27] MEDS: DUONEB (A & A) INH SCH ×4 (03:55→22:55)
[2019-06-27 05:50] LABS: BASO# 0.01 X1000 (0.0-0.2); BASO% 0.1 % (0.0-0.8); HEMATOCRIT 31.5 % (37.0-47.0); HEMOGLOBIN 10.3 g/dL (12.0-16.0); IMM GRAN# 0.02 X1000 (0.0-0.04); IMM GRAN% 0.2 % (0.0-0.5); LYMPH# 1.62 X1000 (1.2-3.4); LYMPH% 17.5 % (20.5-51.1); MCH 29.4 PG (27-31); MCHC 32.7 g/dL (33-37); MONO# 0.89 X1000 (0.11-0.59); MONO% 9.6 % (1.7-9.3); MPV 10.3 FL (7.4-10.4); NEUT# 6.73 X1000 (1.4-6.5); NEUT% 72.6 % (42.2-75.2); PLT 253 X1000 (130-400); RDW 14.7 % (11.5-14.5); WBC 9.27 X1000 (4.8-10.8)
[2019-06-27] MEDS: SYNTHROID PO SCH (06:05)
[2019-06-27 06:12] LABS: AGAP 13; BUN 21 mg/dL (8-22); CALCIUM 8.8 mg/dL (8.8-10.2); CHLORIDE 101 mmol/L (98-107); COSMO 283; CREATININE 0.7 mg/dL (0.5-0.9); ESTIMATED GFR > 60; GLUCOSE 116 mg/dL (70-104); POTASSIUM 3.7 mmol/L (3.5-5.1); SODIUM 140 mmol/L (136-145); TCO2 26 mmol/L (25-35)
--- NOTE | 2019-06-27 07:35 | Diag Imaging Result Doc PS360 ---
EXAM: CHEST-PORTABLE INDICATION: pneumonia TECHNIQUE: One view COMPARISON: 06/25/2019 FINDINGS: COPD changes are again noted. The left lower lobe retrocardiac consolidation is stable to marginally worse. No new consolidation is identified. Cardiac silhouette is stable. IMPRESSION: Stable to marginal worsening of left lower lobe consolidation. Electronically signed by Brice Adams 06/27/2019 7:33 AM
[2019-06-27] MEDS ORDERED: VANCOMYCIN IV PER PHARMACY MISC SCH (09:15)
[2019-06-27] MEDS: BROVANA NEB INH SCH ×2 (09:15→22:55)
--- NOTE | 2019-06-27 09:37 | PROGRESS NOTE ---
DATE: 06/27/2019 SUBJECTIVE: The patient says she is feeling better. OBJECTIVE: Vital Signs: Temperature 97.5 degrees Fahrenheit, pulse 63 and irregular, respirations 26, blood pressure 124/62. HEENT: She is normocephalic. EOMs intact. PERRLA. Throat clear. Lungs: Sound fairly clear to auscultation. Chest x-ray is read as stable to slightly worsening left lower lobe infiltrate. Heart: Regular rate and rhythm without murmurs, gallops, friction rubs. Abdomen: Soft. Active bowel sounds. No organomegaly or tenderness. Neurological: Intact grossly. ASSESSMENT: 1. Left lower lobe pneumonia. 2. Cholelithiasis, asymptomatic. 3. Atrial fibrillation. PLAN: We will modify her IV antibiotics a little bit and change the Rocephin to Fortaz for Pseudomonas coverage and add vancomycin. We will get another chest x-ray on Sunday. cc: Zohaib Pearce Jr, MD
[2019-06-27] MEDS: ASPIRIN EC PO SCH (09:43)
[2019-06-27] MEDS: KLOR-CON PO SCH ×2 (09:43→09:50)
[2019-06-27] MEDS: TOPROL XL PO SCH ×2 (09:50→22:02)
[2019-06-27] MEDS: NORCO-5 PO PRN ×2 (09:51→18:43)
[2019-06-27] MEDS: LASIX PO SCH (09:57)
[2019-06-27] MEDS: PREDNISONE PO SCH (09:57)
[2019-06-27] MEDS: TAZIDIME 2 GM/NS 2 GM/100 ML IVPB IV SCH ×2 (10:01→18:32)
[2019-06-27] MEDS ORDERED: VANCOMYCIN 1,300 MG in NS 250 ML IV ONE (12:00)
[2019-06-27] MEDS ORDERED: BLISTEX MEDICATED BERRY LIP BALM TOP PRN (17:43)
[2019-06-27] MEDS: ZITHROMAX 500 MG/NS 500 MG/250 ML IVPB IV SCH (22:01)
[2019-06-27] MEDS: CRESTOR PO SCH (22:02)
[2019-06-27] MEDS: DESYREL PO SCH (22:02)
[2019-06-27] MEDS: COREG PO SCH (22:02)
[2019-06-28] MEDS: NORCO-5 PO PRN ×2 (00:31→09:39)
[2019-06-28] MEDS: CARDIZEM PO SCH ×2 (00:31→06:13)
[2019-06-28] MEDS: TAZIDIME 2 GM/NS 2 GM/100 ML IVPB IV SCH ×3 (01:37→17:43)
[2019-06-28] MEDS: DUONEB (A & A) INH SCH ×4 (03:50→22:53)
[2019-06-28] MEDS: PROTONIX PO SCH (06:13)
[2019-06-28] MEDS: SYNTHROID PO SCH (06:13)
[2019-06-28 06:18] LABS: BASO# 0.01 X1000 (0.0-0.2); BASO% 0.1 % (0.0-0.8); HEMATOCRIT 29.9 % (37.0-47.0); HEMOGLOBIN 9.7 g/dL (12.0-16.0); IMM GRAN# 0.04 X1000 (0.0-0.04); IMM GRAN% 0.5 % (0.0-0.5); LYMPH# 1.65 X1000 (1.2-3.4); LYMPH% 22.2 % (20.5-51.1); MCH 29.7 PG (27-31); MCHC 32.4 g/dL (33-37); MCV 91.4 FL (81-99); MONO# 0.83 X1000 (0.11-0.59); MONO% 11.2 % (1.7-9.3); MPV 9.9 FL (7.4-10.4); NEUT# 4.91 X1000 (1.4-6.5); PLT 265 X1000 (130-400); RBC 3.27 XMIL (4.2-5.4); RDW 14.8 % (11.5-14.5); WBC 7.44 X1000 (4.8-10.8)
[2019-06-28 07:11] LABS: AGAP 12; BUN 26 mg/dL (8-22); CALCIUM 8.5 mg/dL (8.8-10.2); CHLORIDE 101 mmol/L (98-107); COSMO 283; CREATININE 0.7 mg/dL (0.5-0.9); ESTIMATED GFR > 60; GLUCOSE 108 mg/dL (70-104); POTASSIUM 4.4 mmol/L (3.5-5.1); SODIUM 139 mmol/L (136-145); TCO2 26 mmol/L (25-35)
[2019-06-28] MEDS ORDERED: BROVANA NEB ONE ×2 (07:42)
[2019-06-28] MEDS: BROVANA NEB INH SCH ×2 (08:49→19:40)
[2019-06-28] MEDS ORDERED: LIPITOR PO SCH (09:00)
[2019-06-28] MEDS: XARELTO PO SCH (09:40)
[2019-06-28] MEDS: ABILIFY PO SCH (09:40)
[2019-06-28] MEDS: KLOR-CON PO SCH (09:40)
[2019-06-28] MEDS: TOPROL XL PO SCH ×3 (09:40→21:07)
[2019-06-28] MEDS: LASIX PO SCH (09:40)
[2019-06-28] MEDS: ASPIRIN EC PO SCH (09:41)
[2019-06-28] MEDS: COLACE PO SCH (09:41)
[2019-06-28] MEDS: LEXAPRO PO SCH (09:41)
[2019-06-28] MEDS: PREDNISONE PO SCH (09:41)
[2019-06-28] MEDS: COREG PO SCH (09:41)
--- NOTE | 2019-06-28 10:34 | PROGRESS NOTE ---
DATE: 06/28/2019 SUBJECTIVE: The patient says she is wheezing a little bit this morning. OBJECTIVE: Vital Signs: Blood pressure is 110/45, respirations 17, pulse 52, temperature 98 degrees Fahrenheit. HEENT: She is normocephalic. EOMS intact. PERRLA. Throat clear. Lungs: Have some wheezing in the left base. Heart: Irregularly irregular without murmurs, gallops, or friction rubs. Abdomen: Soft. Active bowel sounds. No organomegaly or tenderness. Neurological: Exam intact grossly. ASSESSMENT: 1. Left lower lobe pneumonia. 2. Chronic atrial fibrillation. 3. Bronchospasm. PLAN: We will continue IV antibiotics. We will give some steroid for the wheezing, and get another chest x-ray tomorrow. cc: Zohaib Pearce Jr, MD
[2019-06-28] MEDS: CARDIZEM CD PO SCH (11:54)
[2019-06-28] MEDS: VANCOMYCIN 1 GM/NS 1 GM/250 ML IVPB IV SCH (11:54)
[2019-06-28] MEDS: SOLU-MEDROL IV SCH ×2 (11:54→17:43)
[2019-06-28] MEDS: CRESTOR PO SCH (21:07)
[2019-06-28] MEDS: DESYREL PO SCH (21:07)
[2019-06-28] MEDS: ZITHROMAX 500 MG/NS 500 MG/250 ML IVPB IV SCH (21:07)
[2019-06-29] MEDS: NORCO-5 PO PRN ×2 (00:47→10:05)
[2019-06-29] MEDS: SOLU-MEDROL IV SCH ×5 (02:03→17:43)
[2019-06-29] MEDS: TAZIDIME 2 GM/NS 2 GM/100 ML IVPB IV SCH ×3 (02:03→17:14)
[2019-06-29] MEDS: DUONEB (A & A) INH SCH ×4 (03:16→22:38)
[2019-06-29] MEDS: SYNTHROID PO SCH (06:09)
[2019-06-29] MEDS: PROTONIX PO SCH (06:10)
[2019-06-29 06:22] LABS: BASO# 0.01 X1000 (0.0-0.2); BASO% 0.1 % (0.0-0.8); HEMATOCRIT 31.8 % (37.0-47.0); HEMOGLOBIN 10.1 g/dL (12.0-16.0); IMM GRAN# 0.05 X1000 (0.0-0.04); IMM GRAN% 0.5 % (0.0-0.5); LYMPH# 0.98 X1000 (1.2-3.4); LYMPH% 10.2 % (20.5-51.1); MCH 29.3 PG (27-31); MCHC 31.8 g/dL (33-37); MCV 92.2 FL (81-99); MONO# 0.44 X1000 (0.11-0.59); MONO% 4.6 % (1.7-9.3); MPV 9.9 FL (7.4-10.4); NEUT# 8.14 X1000 (1.4-6.5); NEUT% 84.6 % (42.2-75.2); PLT 309 X1000 (130-400); RBC 3.45 XMIL (4.2-5.4); RDW 14.8 % (11.5-14.5); WBC 9.62 X1000 (4.8-10.8)
[2019-06-29 07:24] LABS: AGAP 12; BUN 31 mg/dL (8-22); CALCIUM 8.7 mg/dL (8.8-10.2); CHLORIDE 97 mmol/L (98-107); COSMO 289; CREATININE 0.7 mg/dL (0.5-0.9); ESTIMATED GFR > 60; GLUCOSE 147 mg/dL (70-104); POTASSIUM 4.4 mmol/L (3.5-5.1); SODIUM 140 mmol/L (136-145); TCO2 31 mmol/L (25-35)
[2019-06-29] MEDS ORDERED: BROVANA NEB ONE ×2 (08:03)
[2019-06-29] MEDS: BROVANA NEB INH SCH ×2 (08:08→19:30)
[2019-06-29] MEDS: LEXAPRO PO SCH (08:20)
[2019-06-29] MEDS: CARDIZEM CD PO SCH (08:20)
[2019-06-29] MEDS: TOPROL XL PO SCH ×2 (08:20→21:10)
[2019-06-29] MEDS: ASPIRIN EC PO SCH (08:20)
[2019-06-29] MEDS: XARELTO PO SCH (08:20)
[2019-06-29] MEDS: COLACE PO SCH (08:21)
[2019-06-29] MEDS: LASIX PO SCH (08:21)
[2019-06-29] MEDS: ABILIFY PO SCH (08:21)
[2019-06-29] MEDS: KLOR-CON PO SCH (08:21)
--- NOTE | 2019-06-29 08:43 | Diag Imaging Result Doc PS360 ---
CHEST-PORTABLE - 06/29/2019 INDICATION: pneumonia COMPARISON: 06/27/2019 FINDINGS: There has been slight improvement in the small infiltrate in the left lung base. No new infiltrates. Lungs are hyperexpanded compatible with COPD. IMPRESSION: Slight improvement in the faint left basilar pneumonia. Electronically signed by Fadi Linda 06/29/2019 8:41 AM
--- NOTE | 2019-06-29 08:55 | PROGRESS NOTE ---
DATE: 06/29/2019 SUBJECTIVE: The patient says she feels better but I had her take a deep breath and she had a coughing jag with that. OBJECTIVE: Vital Signs: Show blood pressure 110/48, respirations 20, pulse 56 and irregular, temperature 97.6 degrees Fahrenheit. HEENT: She is normocephalic. EOMs intact. PERRLA. Throat clear. Lungs: Have rales and rhonchi in the left base. I think she is finally starting to loosen up now. Heart: Irregularly irregular without murmurs, gallops, or friction rubs. Abdomen: Soft. Active bowel sounds. No organomegaly or tenderness. Neurological: Examination intact grossly. ASSESSMENT: 1. Left lower lobe pneumonia. Chest x-ray looks improved and I really do not see an infiltrate when I look at it. 2. Chronic atrial fibrillation with rapid ventricular response, now resolved. 3. Chronic obstructive pulmonary disease. PLAN: Because of her lungs sounds, even though she is not having wheezing, I think she would benefit from continued IV antibiotics, Solu-Medrol, and incentive spirometry. We will continue that until this clears. cc: Zohaib Pearce Jr, MD
[2019-06-29] MEDS: VANCOMYCIN 1 GM/NS 1 GM/250 ML IVPB IV SCH (12:56)
[2019-06-29] MEDS: CRESTOR PO SCH (21:10)
[2019-06-29] MEDS: DESYREL PO SCH (21:10)
[2019-06-29] MEDS: ZITHROMAX 500 MG/NS 500 MG/250 ML IVPB IV SCH (21:10)
[2019-06-30] MEDS: SOLU-MEDROL IV SCH ×2 (02:23→15:24)
[2019-06-30] MEDS: TAZIDIME 2 GM/NS 2 GM/100 ML IVPB IV SCH ×3 (02:23→18:07)
[2019-06-30] MEDS: DUONEB (A & A) INH SCH ×4 (03:44→21:36)
[2019-06-30 06:04] LABS: BASO# 0.01 X1000 (0.0-0.2); BASO% 0.1 % (0.0-0.8); HEMATOCRIT 31.6 % (37.0-47.0); IMM GRAN# 0.07 X1000 (0.0-0.04); IMM GRAN% 0.4 % (0.0-0.5); LYMPH% 7.1 % (20.5-51.1); MCH 29.3 PG (27-31); MCHC 31.6 g/dL (33-37); MCV 92.7 FL (81-99); MONO# 0.57 X1000 (0.11-0.59); MONO% 3.4 % (1.7-9.3); MPV 9.7 FL (7.4-10.4); NEUT# 15.01 X1000 (1.4-6.5); PLT 333 X1000 (130-400); RBC 3.41 XMIL (4.2-5.4); RDW 14.8 % (11.5-14.5); WBC 16.86 X1000 (4.8-10.8)
[2019-06-30] MEDS: PROTONIX PO SCH (06:09)
[2019-06-30] MEDS: SYNTHROID PO SCH (06:09)
[2019-06-30 06:22] LABS: AGAP 7; BUN 33 mg/dL (8-22); CALCIUM 8.7 mg/dL (8.8-10.2); CHLORIDE 95 mmol/L (98-107); COSMO 283; CREATININE 0.8 mg/dL (0.5-0.9); ESTIMATED GFR > 60; GLUCOSE 141 mg/dL (70-104); POTASSIUM 4.4 mmol/L (3.5-5.1); SODIUM 137 mmol/L (136-145); TCO2 35 mmol/L (25-35)
[2019-06-30 06:41] LABS: BANDS 1 % (0-1); LYMPHS 11 % (21-51); MONO 2 % (1-9); SEGS 86 % (42-75)
--- NOTE | 2019-06-30 09:10 | PROGRESS NOTE ---
DATE: 06/30/2019 SUBJECTIVE: Chest x-ray from yesterday shows slight improvement in the faint left basilar pneumonia. The patient says that she is feeling better. OBJECTIVE: White count up to 16,860, probably from her Solu-Medrol. Hemoglobin 10, hematocrit 31.6. Chemistry profile essentially normal. Blood pressure 134/46, respirations 16, pulse 65, temperature 98.3 degrees Fahrenheit. HEENT she is normocephalic. PERRLA. Throat clear. Lungs sound fairly clear to auscultation. Heart irregularly irregular without murmurs, gallops, friction rubs. Abdomen soft active bowel sounds. No organomegaly or tenderness. Neurological: Intact grossly. ASSESSMENT: 1. Left lower lobe pneumonia, improving. 2. Atrial fibrillation with rapid ventricular response, now rate controlled. PLAN: We will get another chest x-ray in the morning. Continue treatment. cc: Zohaib Perace Jr, MD
[2019-06-30] MEDS: NORCO-5 PO PRN (09:25)
[2019-06-30] MEDS: COLACE PO SCH (09:26)
[2019-06-30] MEDS: LASIX PO SCH (09:26)
[2019-06-30] MEDS: ABILIFY PO SCH (09:26)
[2019-06-30] MEDS: TOPROL XL PO SCH ×2 (09:26→20:58)
[2019-06-30] MEDS: ASPIRIN EC PO SCH (09:26)
[2019-06-30] MEDS: LEXAPRO PO SCH (09:26)
[2019-06-30] MEDS: CARDIZEM CD PO SCH (09:26)
[2019-06-30] MEDS: KLOR-CON PO SCH (09:26)
[2019-06-30] MEDS: XARELTO PO SCH (09:26)
[2019-06-30] MEDS: BROVANA NEB INH SCH ×2 (10:42→21:36)
[2019-06-30] MEDS: VANCOMYCIN 1 GM/NS 1 GM/250 ML IVPB IV SCH (12:50)
[2019-06-30] MEDS: CRESTOR PO SCH (20:58)
[2019-06-30] MEDS: DESYREL PO SCH (20:58)
[2019-06-30] MEDS: ZITHROMAX 500 MG/NS 500 MG/250 ML IVPB IV SCH (20:59)
[2019-07-01] MEDS: SOLU-MEDROL IV SCH (02:02)
[2019-07-01] MEDS: DUONEB (A & A) INH SCH ×3 (03:10→09:30)
[2019-07-01] MEDS: TAZIDIME 2 GM/NS 2 GM/100 ML IVPB IV SCH (05:27)
[2019-07-01] MEDS: SYNTHROID PO SCH ×2 (05:28→06:12)
[2019-07-01] MEDS: VANCOMYCIN 1 GM/NS 1 GM/250 ML IVPB IV SCH (05:28)
[2019-07-01] MEDS: PROTONIX PO SCH ×2 (05:28→06:12)
[2019-07-01 06:15] LABS: HEMATOCRIT 30.4 % (37.0-47.0); HEMOGLOBIN 9.4 g/dL (12.0-16.0); IMM GRAN# 0.08 X1000 (0.0-0.04); IMM GRAN% 0.6 % (0.0-0.5); LYMPH# 0.92 X1000 (1.2-3.4); LYMPH% 6.7 % (20.5-51.1); MCH 28.8 PG (27-31); MCHC 30.9 g/dL (33-37); MCV 93.3 FL (81-99); MONO# 0.51 X1000 (0.11-0.59); MONO% 3.7 % (1.7-9.3); MPV 9.9 FL (7.4-10.4); PLT 322 X1000 (130-400); RBC 3.26 XMIL (4.2-5.4); RDW 14.8 % (11.5-14.5); WBC 13.71 X1000 (4.8-10.8)
[2019-07-01 06:30] LABS: AGAP 8; BUN 30 mg/dL (8-22); CALCIUM 8.4 mg/dL (8.8-10.2); CHLORIDE 96 mmol/L (98-107); COSMO 282; CREATININE 0.6 mg/dL (0.5-0.9); ESTIMATED GFR > 60; GLUCOSE 143 mg/dL (70-104); POTASSIUM 4.5 mmol/L (3.5-5.1); SODIUM 137 mmol/L (136-145); TCO2 33 mmol/L (25-35)
--- NOTE | 2019-07-01 06:46 | Diag Imaging Result Doc PS360 ---
CHEST-PORTABLE - 07/01/2019 INDICATION: pneumonia COMPARISON: 06/29/2019 FINDINGS: Stable COPD changes. No infiltrates at this time. Heart size remains normal. No pneumothorax or significant pleural effusion. IMPRESSION: COPD. No acute disease. Electronically signed by Fadi Linda 07/01/2019 6:44 AM
[2019-07-01] MEDS ORDERED: BROVANA NEB ONE ×2 (07:44)
[2019-07-01] MEDS: ABILIFY PO SCH ×2 (07:53→08:01)
[2019-07-01] MEDS: TOPROL XL PO SCH ×2 (07:53→08:02)
[2019-07-01] MEDS: ASPIRIN EC PO SCH ×2 (07:53→08:01)
[2019-07-01] MEDS: XARELTO PO SCH (07:53)
[2019-07-01] MEDS: LEXAPRO PO SCH ×2 (07:53→08:02)
[2019-07-01] MEDS: KLOR-CON PO SCH ×2 (07:53→08:02)
[2019-07-01] MEDS: COLACE PO SCH ×2 (07:53→08:02)
[2019-07-01] MEDS: LASIX PO SCH ×2 (07:54→08:02)
[2019-07-01] MEDS: CARDIZEM CD PO SCH ×2 (07:54→08:02)
[2019-07-01] MEDS: BROVANA NEB INH SCH (08:54)
--- NOTE | 2019-07-01 09:09 | DISCHARGE SUMMARY ---
ADMISSION DATE: 06/23/2019 DISCHARGE DATE: 07/01/2019 FINAL DIAGNOSES: 1. Left lower lobe pneumonia. 2. Chronic obstructive pulmonary disease. 3. Atrial fibrillation with rapid ventricular response. 4. Diastolic congestive heart failure. 5. Hypertension. 6. Hypothyroidism. 7. Chronic low back pain. 8. Bipolar illness. DISPOSITION: The plan will be to discharge the patient home on her regular home medicines, but we will stop her carvedilol and place her on Cardizem CD 120 mg daily along with metoprolol succinate 25 mg p.o. b.i.d. HISTORY OF PRESENT ILLNESS: The patient came in with shortness of breath, has a history of COPD, chest x-ray showed COPD and left lower lobe pneumonia. She was in atrial fibrillation. Initially, she had a good rate, but during her hospitalization, she developed rapid ventricular response and was started on Cardizem drip. This finally resolved and she is back into her atrial fibrillation. She is on anticoagulation. She was finally placed on Cardizem CD 120 mg daily and metoprolol succinate 25 mg p.o. b.i.d. She was given Lasix 40 mg daily as well for congestive heart failure, and continued with her other home medications. PHYSICAL EXAMINATION: Vitals: Blood pressure is 115/41, respirations 25 and regular, earlier were 17, pulse 62 and irregular, temperature 98.5 degrees Fahrenheit. HEENT: She is normocephalic. EOMs intact. PERRLA. Throat clear. Lungs: The lungs sound clear to auscultation and percussion without rhonchi, rales, or wheezes. Chest x-ray is now clear. Heart: Irregularly irregular without murmurs, gallops, or friction rubs. Abdomen: Soft. Active bowel sounds. No organomegaly or tenderness. Neurologic: Intact grossly. PLAN: We will discharge with the above medications. We will see back in the office within a week. cc: Zohaib Pearce Jr, MD
[2019-07-01] MEDS: NORCO-5 PO PRN (10:41)
[2019-07-01 11:19] VITALS: BP 106/45
== END 2019-07-01 12:47 | disposition home health service (06) | DRG 194 ==
LOC: ED 19:46 → 3N 23:36 → SUATTDRO 23:36 → 2N 06-24 16:05
PROVIDERS: ADMIT Emergency Medicine; ATTEND Emergency Medicine